=== PATIENT | female | born 1965 | race Caucasian/White ===

== ENCOUNTER 2017-02-27 01:44 | Emergency (ER) | payer MEDICARE, MEDICAID ==
[~2017-02-27] VITALS: Ht 172.7 cm; Wt 59.0 kg
[2017-02-27 02:20] LABS: *BILIRUBIN,URIN NEGATIVE (NEGATIVE); *BLOOD, URINE NEGATIVE (NEGATIVE); *CLARITY,URINE CLEAR (CLEAR); *COLOR,URINE YELLOW (YELLOW); *KETONES,URINE NEGATIVE (NEGATIVE); *PROTEIN,URINE NEGATIVE (NEGATIVE); *UROBILINOGEN,URINE 0.2 E.U./dl (NORMAL); LEUKOCYTE ESTERASE ,URINE NEGATIVE (NEGATIVE); NITRITE, URINE NEGATIVE (NEGATIVE); UGLUCOSE NEGATIVE (NEGATIVE)
[2017-02-27 02:22] LABS: *URINE HCG, QUAL NEGATIVE (NEGATIVE); BACTERIA,URINE FEW /HPF (NONE SEEN); RBC,URINE 0-3 /HPF (0-3); SQUAMOUS EPITHELIAL CELL,UR FEW /HPF (NONE SEEN); WBC,URINE 0-3 /HPF (0-3)
[2017-02-27 02:36] LABS: CARBON DIOXIDE 30 mmol/L (21-32); CHLORIDE 104 mmol/L (98-107); CREATININE 0.7 mg/dL (0.6-1.3); GLUCOSE 79 mg/dL (74-106); POTASSIUM 3.6 mmol/L (3.5-5.1); UREA NITROGEN, BLOOD 15 mg/dL (7-18)
[2017-02-27 02:38] LABS: *AMPHETAMINE, URINE NEGATIVE (NEGATIVE); *BARBITURATE, URINE NEGATIVE (NEGATIVE); *CANNABINOID, URINE NEGATIVE (NEGATIVE); *COCCAINE, URINE NEGATIVE (NEGATIVE); *OPIATE, URINE NEGATIVE (NEGATIVE); *PHENCYCLIDINE SCREEN,URINE NEGATIVE (NEGATIVE)
[2017-02-27 02:38] LABS: BASOPHILS % (AUTO) 0.6 % (0.0-2.0); EOSINOPHILS # (AUTO) 0.1 K/uL (0.0-0.7); HEMATOCRIT 34.8 % (37-47); HEMOGLOBIN 12.1 G/DL (12.0-16.0); LYMPHOCYTES # (AUTO) 1.7 K/UL (0.8-4.8); LYMPHOCYTES % (AUTO) 26.9 % (20.5-51.5); MEAN CORPUSCULAR HEMOGLOBIN 32.4 UUG (27.0-31.0); MEAN CORPUSCULAR HGB CONC 35 g/dL (32.0-37.0); MEAN CORPUSCULAR VOLUME 93.2 FL (81.0-99.0); MONOCYTES # (AUTO) 0.5 K/UL (0.1-1.30); MONOCYTES % (AUTO) 7.9 % (0.0-11.0); NEUTROPHILS % (AUTO) 62.6 % (38.5-71.5); PLATELET COUNT (AUTO) 240 K/UL (150-450); RED BLOOD CELL COUNT(AUTO) 3.74 MIL/UL (4.2-5.4); WHITE BLOOD COUNT (AUTO) 6.3 K/UL (4.0-11.2)
[2017-02-27 02:42] LABS: ALANINE AMINOTRANSFERASE 20 U/L (14-59); ALKALINE PHOSPHATASE 51 U/L (50-136); ASPARTATE AMINOTRANSFERASE 16 U/L (15-37); BILIRUBIN,DIRECT 0.1 mg/dL (0.0-0.2); BILIRUBIN,TOTAL 0.5 mg/dL (0.2-1.0); TOTAL PROTEIN, SERUM 7.2 g/dL (6.4-8.2)
[2017-02-27 02:43] LABS: ACETAMINOPHEN < 2.0 ug/mL (10-30)
[2017-02-27 02:44] LABS: ETHANOL < 3 MG/DL (0-0)
--- NOTE | 2017-02-27 03:15 | NUR ---
Patient is resting comfortably in bed with eyes closed
--- NOTE | 2017-02-27 04:40 | NUR ---
Patient is resting comfortably in bed with eyes closed
--- NOTE | 2017-02-27 05:13 | NUR ---
Call placed to Miguel Waldron for PET evaluation, ETA 60 min.
--- NOTE | 2017-02-27 06:33 | NUR ---
Miguel Waldron at bedside for PET evaluation.
--- NOTE | 2017-02-27 07:04 | NUR ---
Patient given written and verbal discharge instructions. Patient verbalizes understanding of instructions. Patient is ambulatory with steady gait. Refuses offer of longterm placement. Patient given list of available shelters in surrounding area.
== END 2017-02-27 07:05 | disposition home or self-care (01) ==
LOC: ER 01:46
DX: F32.9 Major depressive disorder, single episode, unspecified (principal); F41.9 Anxiety disorder, unspecified; F25.9 Schizoaffective disorder, unspecified; F10.20 Alcohol dependence, uncomplicated; F19.10 Other psychoactive substance abuse, uncomplicated; Z59.0 Homelessness
CPT/HCPCS: 36415; 71010; 80048; 80076; 80307; 81001; 84703; 85025; 93005; 99285; A4663; G0480 ×2; G0481

== ENCOUNTER 2017-03-04 18:17 | Emergency (ER) | payer MEDICARE, MEDICAID ==
[~2017-03-04] VITALS: Ht 172.7 cm; Wt 59.0 kg
--- NOTE | 2017-03-04 18:49 | NUR ---
PT DENIES TAKING ANY MEDICATIONS AT THIS TIME.
[2017-03-04 19:42] LABS: BASOPHILS % (AUTO) 0.8 % (0.0-2.0); EOSINOPHILS # (AUTO) 0.1 K/uL (0.0-0.7); EOSINOPHILS % (AUTO) 2.1 % (0.0-7.0); HEMATOCRIT 35.4 % (37-47); HEMOGLOBIN 12.3 G/DL (12.0-16.0); LYMPHOCYTES # (AUTO) 1.6 K/UL (0.8-4.8); LYMPHOCYTES % (AUTO) 27.7 % (20.5-51.5); MEAN CORPUSCULAR HEMOGLOBIN 32.2 UUG (27.0-31.0); MEAN CORPUSCULAR HGB CONC 35 g/dL (32.0-37.0); MEAN CORPUSCULAR VOLUME 92.5 FL (81.0-99.0); MONOCYTES # (AUTO) 0.3 K/UL (0.1-1.30); MONOCYTES % (AUTO) 5.8 % (0.0-11.0); NEUTROPHILS # (AUTO) 3.7 K/UL (1.8-8.9); NEUTROPHILS % (AUTO) 63.6 % (38.5-71.5); PLATELET COUNT (AUTO) 288 K/UL (150-450); RED BLOOD CELL COUNT(AUTO) 3.83 MIL/UL (4.2-5.4); WHITE BLOOD COUNT (AUTO) 5.7 K/UL (4.0-11.2)
[2017-03-04 19:50] LABS: ETHANOL < 3 MG/DL (0-0)
[2017-03-04 19:52] LABS: ALANINE AMINOTRANSFERASE 25 U/L (14-59); ALKALINE PHOSPHATASE 59 U/L (50-136); ASPARTATE AMINOTRANSFERASE 25 U/L (15-37); BILIRUBIN,DIRECT 0.3 mg/dL (0.0-0.2); BILIRUBIN,TOTAL 1.1 mg/dL (0.2-1.0); CARBON DIOXIDE 27 mmol/L (21-32); CHLORIDE 101 mmol/L (98-107); CREATININE 0.8 mg/dL (0.6-1.3); GLUCOSE 116 mg/dL (74-106); POTASSIUM 3.8 mmol/L (3.5-5.1); TOTAL PROTEIN, SERUM 7.3 g/dL (6.4-8.2); UREA NITROGEN, BLOOD 13 mg/dL (7-18)
[2017-03-04 19:54] LABS: ACETAMINOPHEN < 2.0 ug/mL (10-30)
[2017-03-04 20:01] LABS: *BLOOD, URINE 3+ (NEGATIVE); *CLARITY,URINE SLIGHTLY CLOUDY (CLEAR); *COLOR,URINE RED (YELLOW); *KETONES,URINE 1+ (NEGATIVE); LEUKOCYTE ESTERASE ,URINE 1+ (NEGATIVE); NITRITE, URINE POSITIVE (NEGATIVE); PH,URINE 5.5 (5.0-8.0); UGLUCOSE NEGATIVE (NEGATIVE)
[2017-03-04 20:02] LABS: *PROTEIN,URINE 3+ (NEGATIVE); *URINE HCG, QUAL NEGATIVE (NEGATIVE)
[2017-03-04 20:03] LABS: *BILIRUBIN,URIN 2+ (NEGATIVE)
--- NOTE | 2017-03-04 20:06 | NUR ---
Call placed to Miguel Waldron for PET evaluation. ETA 90 min.
[2017-03-04 20:09] LABS: RBC,URINE TNTC /HPF (0-3); SQUAMOUS EPITHELIAL CELL,UR FEW /HPF (NONE SEEN)
[2017-03-04 20:10] LABS: BACTERIA,URINE FEW /HPF (NONE SEEN)
[2017-03-04 20:15] LABS: *AMPHETAMINE, URINE POSITIVE (NEGATIVE); *BARBITURATE, URINE NEGATIVE (NEGATIVE); *CANNABINOID, URINE NEGATIVE (NEGATIVE); *COCCAINE, URINE NEGATIVE (NEGATIVE); *OPIATE, URINE NEGATIVE (NEGATIVE); *PHENCYCLIDINE SCREEN,URINE NEGATIVE (NEGATIVE)
--- NOTE | 2017-03-04 23:36 | NUR ---
Patient is resting comfortably in bed with eyes closed
--- NOTE | 2017-03-05 00:15 | NUR ---
Patient is resting comfortably in bed with eyes closed
--- NOTE | 2017-03-05 02:00 | NUR ---
Patient is resting comfortably in bed with eyes closed
--- NOTE | 2017-03-05 03:37 | NUR ---
Note danii in ED - 03/05/17 at 0351 by ROBEL Patient awake and agitated. Pacing in room, tangential thoughts, crying, and re-washing hands multiple times.
--- NOTE | 2017-03-05 03:51 | NUR ---
Patient awake and agitated. Pacing in room, tangential thoughts, crying, and re-washing hands multiple times. Patient is having anxiety related to her prior drug usage and life choices. Education provided, patient returned to room and layed in bed with eyes closed.
--- NOTE | 2017-03-05 04:35 | NUR ---
Patient is resting comfortably in bed with eyes closed
--- NOTE | 2017-03-05 06:02 | NUR ---
Patient discharged to home in stable conditon. Written and verbal after care instructions given. Patient verbalizes understanding of instructions.
== END 2017-03-05 06:06 | disposition home or self-care (01) ==
LOC: ER 18:17
DX: F19.10 Other psychoactive substance abuse, uncomplicated (principal); F10.20 Alcohol dependence, uncomplicated; F25.9 Schizoaffective disorder, unspecified; Z59.0 Homelessness
CPT/HCPCS: 36415; 80307; 84703; 85025; A4663; G0480; G0480-TC

== ENCOUNTER 2017-03-06 11:08 | Emergency (ER) | payer MEDICARE, MEDICAID ==
[~2017-03-06] VITALS: Ht 172.7 cm; Wt 59.0 kg
--- NOTE | 2017-03-06 11:46 | NUR ---
PT IS IN ROOM #2B. DR TALBERT EVALUATED THE PT . FUEL CELL BINDER CAME TO TALK TO THE PT.
--- NOTE | 2017-03-06 12:23 | NUR ---
MACY called to ED by NATHAN Keita who stated that ED physician was requesting a SW consult. MACY arrived to ED and met with NATHAN Keita and Dr. Mayers to consult. MACY then met with patient, who was lying down in the bed in her assigned ED room. Patient is a 51 year old female, with an extensive history of polysubstance use and mental illness. Patient with multiple ED visits (see previous charts). Patient reported that she came into the ED today due to suicidal thoughts. Patient reported that she was sober for nearly 4 years before relapsing on February 12, 2017 due to feeling very depressed. Patient stated that she last used meth and drank alcohol 2 days ago. Patient has been living in sober living for the past week, but wanted to go to another sober living. Patient also reported that she wanted to get help for her depression and suicidal thoughts. SW screened for plan and intent, and patient reported that when she leaves the hospital she plans on buying drugs from a dealer and overdosing. Patient was tearful throughout the interview with MACY. Patient was cooperative with SW, and asking for help. Patient did not report HI. No delusions or hallucinations present, nor did patient report any. MACY consulted with Dr. Mayers, who concurred with MACY contacting the crisis SW. MACY called the on-call crisis SW Miguel Waldron at [phone] and left him a voicemail, asking him to call MACY back. Dr. Mayers informed that voicemail message has been left for Miguel.
--- NOTE | 2017-03-06 12:41 | NUR ---
MACY received a call back from Miguel Waldron, crisis MACY. This SW consulted with Miguel regarding patient. Miguel stated he would come out to evaluate patient. MACY informed Miguel that patient stated that she would be go to an inpatient psychiatric unit voluntarily. Miguel stated that once he gets to the ED, he would work with this SW to find a place that has an available bed.
--- NOTE | 2017-03-06 12:49 | NUR ---
BEBE SIEGEL WAS CALLED TO EVALUATE PT. JULIETTE IS 1 HOUR.
--- NOTE | 2017-03-06 14:15 | NUR ---
Miguel Waldron in the ED, seeing patient.
--- NOTE | 2017-03-06 16:18 | NUR ---
PT WAS TRANSFERED TO [facility]. VIA S AMBULANCE VOLUNTARY ADMISSION TO PSYCH UNIT. DR RESENDIZ IS ADMITTING DOCTOR. REPORT WAS GIVEN TO AMBULANCE TEAM AND TO [facility] NATHAN MCCLAIN.
== END 2017-03-06 16:28 | disposition short-term general hospital (02) ==
LOC: ER 11:11
DX: F32.9 Major depressive disorder, single episode, unspecified (principal); F10.10 Alcohol abuse, uncomplicated; F25.9 Schizoaffective disorder, unspecified; F41.9 Anxiety disorder, unspecified; F19.20 Other psychoactive substance dependence, uncomplicated; Z59.0 Homelessness
CPT/HCPCS: 99285; A4663

== ENCOUNTER 2021-09-07 15:19 | Emergency (ER) | payer MEDICARE, OTHER ==
[~2021-09-07] VITALS: Ht 172.7 cm; Wt 59.0 kg
[2021-09-07] MEDS ORDERED: DEPAKOTE (15:30)
--- NOTE | 2021-09-07 15:32 | NUR ---
PT IS IN ROOM #1A. DR RESTREPO EVALUATED THE PT.
[2021-09-07] MEDS ORDERED: LORAZEPAM 0.5 MG TABLET PO ONE (16:00)
[2021-09-07] MEDS ORDERED: LORAZEPAM 1 MG TABLET ONE (16:23)
[2021-09-07 16:26] LABS: HEMATOCRIT 36.7 % (31.2-41.9); MEAN CORPUSCULAR HEMOGLOBIN 31.3 uug (24.7-32.8); MEAN CORPUSCULAR VOLUME 91.1 fL (75.5-95.3); PLATELET COUNT (AUTO) 267 K/uL (179-408)
[2021-09-07 16:29] LABS: CARBON DIOXIDE 28 mmol/L (21-32); CHLORIDE 103 mmol/L (98-107); CREATININE 0.7 mg/dL (0.6-1.3); GLUCOSE 118 mg/dL (74-106); POTASSIUM 3.9 mmol/L (3.5-5.1); UREA NITROGEN, BLOOD 12 mg/dL (7-18)
[2021-09-07 16:35] LABS: ACETAMINOPHEN < 2.0 ug/mL (10-30); ALANINE AMINOTRANSFERASE 16 U/L (14-59); ALKALINE PHOSPHATASE 79 U/L (50-136); ASPARTATE AMINOTRANSFERASE 16 U/L (15-37); BILIRUBIN,TOTAL 0.9 mg/dL (0.2-1.0); TOTAL PROTEIN, SERUM 7.6 g/dL (6.4-8.2)
[2021-09-07 16:36] LABS: ETHANOL < 3 MG/DL (0-0)
[2021-09-07 16:56] LABS: THYROID STIMULATING HORMONE 2.496 mIU/mL (0.358-3.740)
--- NOTE | 2021-09-07 17:03 | NUR ---
UTILITY OPERATOR YARN ANA TALKED TO THE PT . PT STATED THAT SHE VOLUNTARY WANTS TO BE ADMITTED TO PSYCHIATRIC UNIT AT [facility] [address].
--- NOTE | 2021-09-07 17:57 | NUR ---
PT IS MEDICALLY CLEARED BY DR RESTREPO. COPY OF PT's MEDICAL RECORDS WERE FAXED TO [facility] [address], [address] ACCORDING TO WORKRobert PEREZ REQUEST.
--- NOTE | 2021-09-07 19:10 | NUR ---
PT HAS REFUSED FOR HEAD CT, DR. RESTREPO AWARE.
--- NOTE | 2021-09-07 19:12 | NUR ---
RECEIVED REPORT FROM JOSE DANIEL. PT NOTED TO BE IN BED, NO SOB OR LABORED BREATHING, AFEBRILE. DENIES ANY PAIN/DISCOMFORT.
--- NOTE | 2021-09-07 19:28 | NUR ---
Julianna foy in EDM - 09/07/21 at 2002 by ANGE RECEIEVED CALL FROM ART FROM [facility] PT [facility] ACCEPTING PSYCH: DR. SANTORO REPORT #: [phone]
--- NOTE | 2021-09-07 19:28 | NUR ---
RECEIEVED CALL FROM ART FROM [facility] PT [facility]ED TO [facility] ACCEPTING PSYCH: DR. SANTORO REPORT #: [phone]
--- NOTE | 2021-09-07 20:04 | NUR ---
REPORT GIVEN TO [facility] VICENTE.
[2021-09-07] MEDS ORDERED: HALOPERIDOL LACTATE 5 MG/1 ML VIAL ONE (20:28)
[2021-09-07] MEDS ORDERED: HALOPERIDOL LACTATE 5 MG/1 ML VIAL IM ONE (20:30)
[2021-09-07] MEDS ORDERED: LORA-259 PO (23:19)
--- NOTE | 2021-09-08 02:05 | NUR ---
PT IN BED EYES CLOSED, RESTING.
--- NOTE | 2021-09-08 06:34 | NUR ---
PT AMBULATED TO RESTROOM, STEADY GAIT.
--- NOTE | 2021-09-08 08:12 | NUR ---
Patient is awake and alert. She ambulated to the bathroom with steady gait. Stated she is ready to leave. DC, Rx (including all Ativan precautions) given and explained to patient who state she understands all instructions.
== END 2021-09-08 08:14 | disposition home or self-care (01) ==
LOC: ER 15:21
DX: F31.9 Bipolar disorder, unspecified (principal); F20.9 Schizophrenia, unspecified; Z79.899 Other long term (current) drug therapy; Z20.822 Contact with and (suspected) exposure to COVID-19
CPT/HCPCS: 36415; 80053; 80299; 80320; 84443; 84484; 85025; 87426; 96372; 99285; J1630; 70030-TC; A4663; G0480

== ENCOUNTER 2021-09-25 17:10 | Emergency (ER) | payer MEDICARE, OTHER ==
[~2021-09-25] VITALS: Ht 172.7 cm; Wt 59.0 kg
[~2021-09-25 17:10] MED LIST: DEPAKOTE PO; LORA-259 PO
[2021-09-25] MEDS ORDERED: LORA2TAB95 PO (18:12)
[2021-09-25 18:20] LABS: HEMATOCRIT 33.4 % (31.2-41.9); MEAN CORPUSCULAR HEMOGLOBIN 31.6 uug (24.7-32.8); MEAN CORPUSCULAR VOLUME 90.5 fL (75.5-95.3); PLATELET COUNT (AUTO) 289 K/uL (179-408)
[2021-09-25 18:25] LABS: CARBON DIOXIDE 29 mmol/L (21-32); CHLORIDE 104 mmol/L (98-107); CREATININE 0.7 mg/dL (0.6-1.3); GLUCOSE 96 mg/dL (74-106); POTASSIUM 4.4 mmol/L (3.5-5.1); UREA NITROGEN, BLOOD 13 mg/dL (7-18)
[2021-09-25 18:27] LABS: *BILIRUBIN,URIN NEGATIVE (NEGATIVE); *COLOR,URINE YELLOW (YELLOW); *KETONES,URINE 1+ (NEGATIVE); *UROBILINOGEN,URINE 0.2 E.U./dl (NORMAL); LEUKOCYTE ESTERASE ,URINE 1+ (NEGATIVE); NITRITE, URINE NEGATIVE (NEGATIVE); PH,URINE 5.5 (5.0-8.0); UGLUCOSE NEGATIVE (NEGATIVE)
[2021-09-25 18:31] LABS: ALANINE AMINOTRANSFERASE 18 U/L (14-59); ALKALINE PHOSPHATASE 61 U/L (50-136); ASPARTATE AMINOTRANSFERASE 22 U/L (15-37); BILIRUBIN,DIRECT 0.1 mg/dL (0.0-0.2); BILIRUBIN,TOTAL 0.5 mg/dL (0.2-1.0)
[2021-09-25 18:32] LABS: ACETAMINOPHEN < 2.0 ug/mL (10-30); ETHANOL < 3 MG/DL (0-0)
[2021-09-25 18:33] LABS: *BLOOD, URINE TRACE (NEGATIVE)
[2021-09-25 18:36] LABS: *CLARITY,URINE HAZY (CLEAR); BACTERIA,URINE FEW /HPF (NONE SEEN); SQUAMOUS EPITHELIAL CELL,UR MODERATE /HPF (NONE SEEN); WBC,URINE 20-50 /HPF (0-3)
[2021-09-25 18:37] LABS: *AMPHETAMINE, URINE POSITIVE (NEGATIVE); *CANNABINOID, URINE NEGATIVE (NEGATIVE); *COCCAINE, URINE NEGATIVE (NEGATIVE); *OPIATE, URINE NEGATIVE (NEGATIVE); *PHENCYCLIDINE SCREEN,URINE NEGATIVE (NEGATIVE)
--- NOTE | 2021-09-25 18:47 | NUR ---
Patient is now in room 3 because this patient is COVID+ per lab staff
--- NOTE | 2021-09-25 18:48 | NUR ---
Julianna foy in [facility] - 09/25/21 at 1919 by LINDA tita medical clearance, SBAR to 7pm nurse Wilner singh.
--- NOTE | 2021-09-25 19:01 | NUR ---
SBAR to NATHAN Darby and orientee NATHAN Vera, pending medical clearance and psych evaluation@this time. 1:1 sitter observation maintained with female security installation sales technician.
--- NOTE | 2021-09-25 19:01 | NUR ---
Julianna foy in [facility] - 09/25/21 at 1919 by LINDA BSAR to NATHAN Darby and NATHAN Joseph
[2021-09-25] MEDS ORDERED: CEPH500T PO (20:17)
--- NOTE | 2021-09-25 20:47 | NUR ---
Pinky from PET TEAM here to eval patient.
--- NOTE | 2021-09-25 21:30 | NUR ---
Per Amna from the PET TEAM, patient does not meet 5150 criteria and will go voluntary to [facility] [place] [facility].
--- NOTE | 2021-09-26 01:00 | NUR ---
Patient sleeping with no distress noted.
--- NOTE | 2021-09-26 06:10 | NUR ---
Pam of [facility] intake called back who states patient is accepted and will call back with transfer info and accepting MD.
--- NOTE | 2021-09-26 07:13 | NUR ---
Building Services Technician assumes care: patient is resting with eyes close, respiration:easy, nonlabored and even. The patient is for voluntary psych admission to [facility] today, pending accepting nurse, doctor and available COVID room at this time.
--- NOTE | 2021-09-26 08:13 | NUR ---
Water Purification Chemist Nicky Obrien called and said to call [facility] for nursing report by 11am and ambulance can pickle processor this patient by 11am as well. Val will give the phone number for nursing report.
--- NOTE | 2021-09-26 09:02 | NUR ---
Val, our ER professor of social work gave the telephone number for nursing report which is . Per Val, the nursing staff in [facility] unit 6 will give the name of the accepting doctor once nursing report is given at 11am. [place] Professional dispatcher tugboat Sav accepted the call and a S ambulance will pick this patient up at 11am.
--- NOTE | 2021-09-26 10:07 | NUR ---
Patient is eating hot breakfast with good appetite, NAD, calm, cooperative when awake.
--- NOTE | 2021-09-26 11:08 | NUR ---
Patient Tranfers to outside Facility:[facility] Physician:Opal Location:room 436-B Nurse: Kenna todd nursing SBAR
== END 2021-09-26 11:08 | disposition short-term general hospital (02) ==
LOC: ER 17:16
DX: U07.1 COVID-19 (principal); F32.9 Major depressive disorder, single episode, unspecified; F15.10 Other stimulant abuse, uncomplicated; R82.81 Pyuria; Z79.899 Other long term (current) drug therapy
CPT/HCPCS: 36415; 71045; 85025; 87077; 87086; A4663; G0480

== ENCOUNTER 2021-11-03 23:22 | Emergency (ER) | payer MEDICARE, OTHER ==
[~2021-11-03] VITALS: Ht 172.7 cm; Wt 63.5 kg
[~2021-11-03 23:22] MED LIST changes: +CEPH500T PO; -LORA-259 PO; +LORA2TAB95 PO
[2021-11-03] MEDS ORDERED: THIAMINE HCL 100 MG TABLET PO ONE (23:45)
--- NOTE | 2021-11-03 23:45 | NUR ---
Pt provided urine sample, sent to lab.
[2021-11-04] MEDS ORDERED: THIAMINE HCL 100 MG TABLET ONE (00:12)
[2021-11-04 00:15] LABS: HEMATOCRIT 35.1 % (31.2-41.9); MEAN CORPUSCULAR HEMOGLOBIN 31.8 uug (24.7-32.8); MEAN CORPUSCULAR VOLUME 92.3 fL (75.5-95.3); PLATELET COUNT (AUTO) 246 K/uL (179-408)
[2021-11-04 00:21] LABS: CARBON DIOXIDE 28 mmol/L (21-32); CHLORIDE 105 mmol/L (98-107); CREATININE 0.6 mg/dL (0.6-1.3); GLUCOSE 98 mg/dL (74-106); POTASSIUM 3.7 mmol/L (3.5-5.1); UREA NITROGEN, BLOOD 17 mg/dL (7-18)
[2021-11-04 00:27] LABS: ALANINE AMINOTRANSFERASE 13 U/L (14-59); ALKALINE PHOSPHATASE 62 U/L (50-136); ASPARTATE AMINOTRANSFERASE 14 U/L (15-37); BILIRUBIN,DIRECT 0.2 mg/dL (0.0-0.2); BILIRUBIN,TOTAL 0.8 mg/dL (0.2-1.0); TOTAL PROTEIN, SERUM 7.2 g/dL (6.4-8.2)
[2021-11-04 00:28] LABS: ACETAMINOPHEN < 2.0 ug/mL (10-30)
[2021-11-04 00:43] LABS: ETHANOL < 3 MG/DL (0-0)
[2021-11-04 01:06] LABS: *AMPHETAMINE, URINE NEGATIVE (NEGATIVE); *CANNABINOID, URINE POSITIVE (NEGATIVE); *COCCAINE, URINE NEGATIVE (NEGATIVE); *OPIATE, URINE NEGATIVE (NEGATIVE); *PHENCYCLIDINE SCREEN,URINE NEGATIVE (NEGATIVE)
[2021-11-04 01:49] LABS: *BILIRUBIN,URIN NEGATIVE (NEGATIVE); *BLOOD, URINE NEGATIVE (NEGATIVE); *CLARITY,URINE CLEAR (CLEAR); *COLOR,URINE YELLOW (YELLOW); *KETONES,URINE TRACE (NEGATIVE); *UROBILINOGEN,URINE 0.2 E.U./dl (NORMAL); LEUKOCYTE ESTERASE ,URINE 1+ (NEGATIVE); NITRITE, URINE NEGATIVE (NEGATIVE); PH,URINE 5.5 (5.0-8.0); UGLUCOSE NEGATIVE (NEGATIVE)
[2021-11-04 01:54] LABS: BACTERIA,URINE FEW /HPF (NONE SEEN); RBC,URINE 0-3 /HPF (0-3); SQUAMOUS EPITHELIAL CELL,UR FEW /HPF (NONE SEEN)
--- NOTE | 2021-11-04 01:59 | NUR ---
Pt medically cleared by Dr. Durand.
--- NOTE | 2021-11-04 02:08 | NUR ---
Called [facility], spoke with Danna, pt is willing to go voluntarily, faxed patient's information to .
--- NOTE | 2021-11-04 04:32 | NUR ---
Received call back from [facility], spoke with Danna with transfer information, patient accepted by Dr. Gutierrez, unit 1, number to report .
--- NOTE | 2021-11-04 06:00 | NUR ---
Report given to Hermelindo EVANS [facility].
== END 2021-11-04 06:11 ==
LOC: ER 23:24
DX: R45.851 Suicidal ideations (principal); F15.10 Other stimulant abuse, uncomplicated; F10.20 Alcohol dependence, uncomplicated; Y90.0 Blood alcohol level of less than 20 mg/100 ml; Z59.00 Homelessness unspecified; F31.9 Bipolar disorder, unspecified; Z20.822 Contact with and (suspected) exposure to COVID-19
CPT/HCPCS: 36415; 83735; 85025; 87086; G0480

== ENCOUNTER 2021-11-18 02:05 | Inpatient (IN) | payer MEDICARE, OTHER ==
[~2021-11-18] VITALS: Ht 172.7 cm; Wt 61.7 kg
--- NOTE | 2021-11-18 02:23 | NUR ---
yahaira roman ra from [facility] pt is on a 5150 gravely disabled will not take meds or eat. pt provided urine sample. pt will be transferred to mental health.
--- NOTE | 2021-11-18 02:26 | NUR ---
Dr. Durand at bedside for MSE.
[2021-11-18 02:30] LABS: *BILIRUBIN,URIN NEGATIVE (NEGATIVE); *BLOOD, URINE NEGATIVE (NEGATIVE); *COLOR,URINE YELLOW (YELLOW); *KETONES,URINE TRACE (NEGATIVE); *UROBILINOGEN,URINE 0.2 E.U./dl (NORMAL); LEUKOCYTE ESTERASE ,URINE 1+ (NEGATIVE); NITRITE, URINE NEGATIVE (NEGATIVE); PH,URINE 5.5 (5.0-8.0); UGLUCOSE NEGATIVE (NEGATIVE)
[2021-11-18 02:40] LABS: *CLARITY,URINE HAZY (CLEAR)
[2021-11-18] MEDS ORDERED: diphenhydrAMINE 50 MG/1 ML VIAL ONE (02:42)
[2021-11-18 02:43] LABS: HEMATOCRIT 37.4 % (31.2-41.9); MEAN CORPUSCULAR HEMOGLOBIN 31.2 uug (24.7-32.8); MEAN CORPUSCULAR VOLUME 90.2 fL (75.5-95.3); PLATELET COUNT (AUTO) 192 K/uL (179-408)
[2021-11-18] MEDS ORDERED: ZIPRASIDONE MESYLATE 20 MG VIAL IM ONE ×2 (02:43→02:45)
[2021-11-18] MEDS ORDERED: LORAZEPAM 2 MG/1 ML VIAL ONE (02:44)
[2021-11-18 02:45] LABS: *AMPHETAMINE, URINE NEGATIVE (NEGATIVE); *CANNABINOID, URINE NEGATIVE (NEGATIVE); *COCCAINE, URINE NEGATIVE (NEGATIVE); *OPIATE, URINE NEGATIVE (NEGATIVE); *PHENCYCLIDINE SCREEN,URINE NEGATIVE (NEGATIVE)
[2021-11-18] MEDS ORDERED: LORAZEPAM 2 MG/1 ML VIAL IM ONE (02:45)
[2021-11-18] MEDS ORDERED: diphenhydrAMINE 50 MG/1 ML VIAL IM ONE (02:45)
[2021-11-18 02:54] LABS: CARBON DIOXIDE 27 mmol/L (21-32); CHLORIDE 106 mmol/L (98-107); CREATININE 0.6 mg/dL (0.6-1.3); GLUCOSE 108 mg/dL (74-106); POTASSIUM 3.8 mmol/L (3.5-5.1); UREA NITROGEN, BLOOD 14 mg/dL (7-18)
[2021-11-18 02:54] LABS: BACTERIA,URINE FEW /HPF (NONE SEEN); RBC,URINE NONE SEEN /HPF (0-3); SQUAMOUS EPITHELIAL CELL,UR FEW /HPF (NONE SEEN)
[2021-11-18 02:55] LABS: ETHANOL < 3 MG/DL (0-0)
--- NOTE | 2021-11-18 02:55 | NUR ---
injection given, pt is restless, refusing ekg getting oob cursing at staff.
--- NOTE | 2021-11-18 03:01 | NUR ---
called to mental health spoke with Jesus, he is aware of this pt to come to mental health. pt has a history of bipolar disorder, takes trazodone and depakote.
[2021-11-18 03:06] LABS: ALANINE AMINOTRANSFERASE 24 U/L (14-59); ALKALINE PHOSPHATASE 77 U/L (50-136); ASPARTATE AMINOTRANSFERASE 15 U/L (15-37); BILIRUBIN,DIRECT 0.2 mg/dL (0.0-0.2); BILIRUBIN,TOTAL 0.6 mg/dL (0.2-1.0)
[2021-11-18 03:08] LABS: ACETAMINOPHEN < 2.0 ug/mL (10-30)
[2021-11-18] MEDS ORDERED: MAGNESIUM HYDROXIDE 30 ML LIQUID UDC PO PRN (03:15)
[2021-11-18] MEDS ORDERED: MAG HYDROX/AL HYDROX/SIMETH 30 ML LIQUID UDC PO PRN (03:15)
[2021-11-18] MEDS ORDERED: BLOOD SUGAR DIAGNOSTIC 1 EACH STRIP VI ONE (03:15)
[2021-11-18] MEDS ORDERED: CLONAZEPAM 0.5 MG TABLET PO PRN (03:15)
[2021-11-18] MEDS ORDERED: ACETAMINOPHEN 325 MG TABLET PO PRN (03:15)
--- NOTE | 2021-11-18 03:34 | NUR ---
report given to Jesus in mental health pt to go to room 140.
[2021-11-18] MEDS ORDERED: TRAZ-182 PO (03:36)
--- NOTE | 2021-11-18 04:18 | NUR ---
pt taken to mental health unit, Jesus QUINTERO accepted the pt. pt with all belongings.
[2021-11-18 04:35] VITALS: BP 93/52
--- NOTE | 2021-11-18 07:00 | NUR ---
Received to care from the ER, on a 72 hour hold for gravely disabled, a transfer from [facility], in [place]. According to the hold, she was refusing food and medications, and paranoid of staff, for the past 11 days. Upon arrival, she was groggy after being medicated in the ER, was confused, and thought she was in "[facility]". She wa suncoperative with interview, and went promptly to sleep. She was advised of her hold, and patients rights booklet was given to her, and placed at her bedside.
[2021-11-18 07:30] VITALS: BP 98/57
[2021-11-18] MEDS: DIVALPROEX 250 MG TABLET.DR PO SCH ×3 (10:19→20:47)
[2021-11-18 16:00] VITALS: BP 109/76
[2021-11-18] MEDS: CLONAZEPAM 0.5 MG TABLET PO PRN ×2 (16:58→22:54)
[2021-11-18 20:00] VITALS: BP 108/80
--- NOTE | 2021-11-18 20:00 | NUR ---
PATIENT ALERT, AWARE, AMBULATE IN HALLWAYS, ASKED FOR SNACKS, COFFEE, JUICE, GIVEN REQUESTED, PATIENT IS CALM COOPERATIVE WITH CARE AND MEDICATIONS, CONT TO MONITOR.
[2021-11-18] MEDS: OLANZAPINE 5 MG TABLET PO SCH (20:47)
[2021-11-18] MEDS ORDERED: ZOLPIDEM 5 MG TABLET PO ONE (21:00)
--- NOTE | 2021-11-18 23:40 | NUR ---
PATIENT STILL AWAKE, AMBULATE TO HALLWAYS ASKING FOR FOOD MULTIPLE TIMES, DESPITE GIVEN SANDWICHES ALREADY, JUICE, HOT TEA, PATIENT HAS LITTLE ANXIETY, WALKS IN AND OUT OF HER ROOM, REORIENT PATIENT THAT SHE NEEDS TO STAY IN BED, CAUSE SHE TOOK SLEEPING MEDS ALREADY, AND RISK FOR FALL, PATIENT COOPERATIVE, GOES BACK TO ROOM AND TRIES TO SLEEP. CONT TO MONITOR.
[2021-11-19 07:56] LABS: PHOSPHOROUS 3.8 mg/dL (2.5-4.9)
[2021-11-19 08:28] LABS: THYROID STIMULATING HORMONE 0.942 mIU/mL (0.358-3.740)
[2021-11-19] MEDS: DIVALPROEX 250 MG TABLET.DR PO SCH ×2 (08:58→20:13)
[2021-11-19 16:05] VITALS: BP 106/76
[2021-11-19 20:00] VITALS: BP 106/75
[2021-11-19] MEDS: OLANZAPINE 5 MG TABLET PO SCH (20:14)
--- NOTE | 2021-11-20 06:16 | NUR ---
Patient was noted with labile mood, paranoid with care. Refused Zyprexa, stated "she does not need it and people are being racist to her." She walks the hallway in and out of the room demanding to give her food even if she already got some. Shouted when she was not able to get tea per her request, explained she already had one and dietary is closed to request for more. Demanded soy milk or non fat milk because that's the only drink she wants and stated she wants to make sure she will get food that is non fattening. Maintained safety measures at all times. Frequent checks done. Denies SI. No acute distress noted. She slept seven hours. will endorse to the next shift for continuity of care.
[2021-11-20 07:42] VITALS: BP 117/74
[2021-11-20] MEDS: CYANOCOBALAMIN 1,000 MCG TABLET PO SCH ×2 (08:35→09:00)
[2021-11-20] MEDS: DIVALPROEX 250 MG TABLET.DR PO SCH ×3 (08:35→21:00)
[2021-11-20 17:10] VITALS: BP 128/80
--- NOTE | 2021-11-20 17:58 | NUR ---
patient refused all am medication , made aware.will submit rinse petition per psychiatrist today.patient is continue with labile mood and poor insight and judgement .will continue close monitoring.
[2021-11-20 20:02] VITALS: BP 118/76
[2021-11-20] MEDS: NITROFURANTOIN/NITROFURAN MAC 100 MG CAPSULE PO SCH (21:00)
[2021-11-20] MEDS: OLANZAPINE 5 MG TABLET PO SCH (21:00)
[2021-11-20] MEDS: TEMAZEPAM 7.5 MG CAPSULE PO PRN (22:02)
--- NOTE | 2021-11-20 23:10 | NUR ---
PATIENT CONTINUES TO REFUSE MEDICATION, EXPLAINED THE IMPORTANCE OF TAKING MEDICATION AND CONTINUES TO REFUSE. . PATIENT IS PLEASANT UPON APPROACH, IN NO APPARENT DISTRESS. PATIENT DENIES PAIN AT THIS TIME. PATIENT DENIES SI. BED IN LOWEST POSITION, BED LOCKED, AND BED ALARM ON WHILE IN BED. PATIENT REQUESTED SLEEP AID, RENDERED ORDERED.
[2021-11-21 07:30] VITALS: BP 90/57
[2021-11-21] MEDS: NITROFURANTOIN/NITROFURAN MAC 100 MG CAPSULE PO SCH ×2 (08:45→21:00)
[2021-11-21] MEDS: MULTIVITAMINS,THERAPEUTIC TABLET PO SCH (08:45)
[2021-11-21] MEDS: CYANOCOBALAMIN 1,000 MCG TABLET PO SCH (08:45)
[2021-11-21] MEDS: DIVALPROEX 250 MG TABLET.DR PO SCH ×2 (08:45→21:00)
[2021-11-21] MEDS: FAMOTIDINE 20 MG TABLET PO SCH (08:45)
--- NOTE | 2021-11-21 08:46 | NUR ---
GPS: PT RECEIVED ON BED. DENIES ANY PAIN OR DISCOMFORT. PT ISOLATIVE IN THE ROOM. REFUSED MEDICATION. EXPLAINED RISK AND BENEFITS. NO AGITATION NOTED. WILL MONITOR FOR SAFETY. PER BENJAMIN VASQUEZ, DAM TENDER ASSISTANT, PT WILL BE DISCHARGE TOMORROW.
--- NOTE | 2021-11-21 11:25 | NUR ---
SW Admit Source: Pt on a hold for GD. Pt placed on a hold a transfer from [facility], in [place]. According to the hold, she was refusing food and medications, and paranoid of staff, for the past 11 days. Pt is homeless and will need a SNF.
--- NOTE | 2021-11-21 11:25 | NUR ---
MACY Initial Discharge Plan: Pt. is a 56-year-old female who was admitted to [facility] on a hold as a gravely disabled adult. Pt. is currently homeless. Per pt.s mother Jania ([phone]) pt. Came from a board and care. Per pt.s mother Jania ([phone]) pt. has nowhere to go upon discharge. Pt. stated she did not want to go to a halfway facility. Pt. stated she wanted to go to a sober living facility through [facility]. MACY will coordinate with MD and the pt. to coordinate safe and proper discharge.
--- NOTE | 2021-11-21 15:27 | NUR ---
GPS: PT WENT TO NURSES STATION SAYING THAT SHE WAS MISSING A MIRROR ON HER STUFF AND SHE DOES NOT WANT IT ANYMORE. PT IS PARANOID AND ANXIOUS. OFFERED MEDICATION TO ANXIETY BUT PT REFUSED AND STATED "I DON'T WANT ANYTHING FROM [facility]".
--- NOTE | 2021-11-21 18:22 | NUR ---
GPS: PT PACING THE HALLWAY, SPEAKS WITH OTHER PT. NOTED HAVING LOOSE OF ASSOCIATION, JUMPING FROM ONE TOPIC TO ANOTHER. PARANOIA AND SUDDEN INAPPROPRIATE LAUGHING WITH NO REASON NOTED. REFUSES MEDICATION.
[2021-11-21] MEDS: OLANZAPINE 5 MG TABLET PO SCH (21:00)
--- NOTE | 2021-11-21 22:19 | NUR ---
PATIENT CONTINUES TO REFUSE MEDICATION, EXPLAINED THE IMPORTANCE OF TAKING MEDICATION AND CONTINUES TO REFUSE. . PATIENT IN NO APPARENT DISTRESS. PATIENT RESPONDING TO INTERNAL STIMULI. PATIENT DENIES PAIN AT THIS TIME. PATIENT DENIES SI. BED IN LOWEST POSITION, BED LOCKED, AND BED ALARM ON WHILE IN BED. PATIENT ABLE TO MAKE NEEDS KNOWN.
[2021-11-22 07:30] VITALS: BP 139/73
[2021-11-22] MEDS: DIVALPROEX 250 MG TABLET.DR PO SCH (08:41)
[2021-11-22] MEDS: NITROFURANTOIN/NITROFURAN MAC 100 MG CAPSULE PO SCH ×2 (08:43→20:55)
[2021-11-22] MEDS: MULTIVITAMINS,THERAPEUTIC TABLET PO SCH (08:43)
[2021-11-22] MEDS: CYANOCOBALAMIN 1,000 MCG TABLET PO SCH (08:43)
[2021-11-22] MEDS: FAMOTIDINE 20 MG TABLET PO SCH (08:43)
--- NOTE | 2021-11-22 16:36 | NUR ---
patient is alert and oriented x3, continue refused all medication she state that 'i don't want to take any medication from here", psychiatrist made aware. patient with poor insight and poor judgement .pacing in the unit no interaction with other peers,encouraged to attendance in group activity ,will continue to monitoring .
--- NOTE | 2021-11-22 20:00 | NUR ---
Refused evening vital vital signs.
[2021-11-22 20:18] VITALS: BP 133/86
[2021-11-22] MEDS: DIVALPROEX 500 MG TABLET.DR PO SCH (20:55)
[2021-11-22] MEDS: ESCITALOPRAM OXALATE 10 MG TABLET PO SCH (20:55)
[2021-11-22] MEDS: OLANZAPINE 5 MG TABLET PO SCH (20:55)
--- NOTE | 2021-11-23 00:42 | NUR ---
Received patient in her room. The patient refused to have VS taken and stating that there is a " Chemicals are going up my nose from the machine. " This patient was angry, condescending and refused to take any medications including the antibiotic for her UTI. This staff writer tried to explain about medications and educate this patient , but the patient is paranoid and unable to engage in any meaningful conversation. She has poor impulse control and labile moods. Safety Stratiges are in place at this time.
[2021-11-23] MEDS: DIVALPROEX 500 MG TABLET.DR PO SCH ×3 (01:13→21:00)
--- NOTE | 2021-11-23 03:21 | NUR ---
During the night , this patient came to the nurses station and asked for the Depakote which she had earlier refused. The medication was provided. The antibiotic was offered at that time, and again the patient declined.
[2021-11-23 08:33] VITALS: BP 112/77
[2021-11-23] MEDS: FAMOTIDINE 20 MG TABLET PO SCH ×2 (09:00→09:08)
[2021-11-23] MEDS: NITROFURANTOIN/NITROFURAN MAC 100 MG CAPSULE PO SCH ×3 (09:00→21:00)
[2021-11-23] MEDS: CYANOCOBALAMIN 1,000 MCG TABLET PO SCH ×2 (09:00→09:09)
[2021-11-23] MEDS: MULTIVITAMINS,THERAPEUTIC TABLET PO SCH ×2 (09:00→09:11)
[2021-11-23 17:36] VITALS: BP 127/77
[2021-11-23] MEDS: ESCITALOPRAM OXALATE 10 MG TABLET PO SCH (21:00)
[2021-11-23] MEDS: OLANZAPINE 5 MG TABLET PO SCH (21:00)
[2021-11-23 21:40] VITALS: BP 127/29
--- NOTE | 2021-11-24 06:08 | NUR ---
Patient continues to be paranoid and refused all her medications during this shift.
[2021-11-24 07:30] VITALS: BP 100/70
[2021-11-24] MEDS: FAMOTIDINE 20 MG TABLET PO SCH (08:38)
[2021-11-24] MEDS: DIVALPROEX 500 MG TABLET.DR PO SCH ×2 (08:38→20:14)
[2021-11-24] MEDS: MULTIVITAMINS,THERAPEUTIC TABLET PO SCH (08:38)
[2021-11-24] MEDS: CYANOCOBALAMIN 1,000 MCG TABLET PO SCH (08:38)
[2021-11-24] MEDS: NITROFURANTOIN/NITROFURAN MAC 100 MG CAPSULE PO SCH ×2 (08:38→20:14)
--- NOTE | 2021-11-24 08:39 | NUR ---
Gps/Soil Science Technical Officer- Patient continue to refused, routine am meds, reviewed with patient, claimed she'll take care of her meds./prescriptions when she leaves the hosp. informed and instructed patient the importance of starting taking her routine meds. as prescribed. . Able to drink juice, refused breakfast
--- NOTE | 2021-11-24 10:53 | NUR ---
Gps/Periodontist- Refused to be swabbed for covid antigen claimed she's not going to any facility. Sobia die out worker was made aware , informed, talked to patient . Dr Jarrod Baez was called by Sobia CAVAZOS, was informed of patient behavior , anxious
--- NOTE | 2021-11-24 11:08 | NUR ---
Gps/Senior Automation Engineer- Patient extremely anxious, agitated, wanting to leave right now, but not providing location where she's going . Dr Baez, talked to Dr Bernabe, discharge orders cancelled .
[2021-11-24] MEDS ORDERED: LORAZEPAM 2 MG/1 ML VIAL IV ONE (11:40)
[2021-11-24] MEDS ORDERED: LORAZEPAM 2 MG/1 ML VIAL IM ONE (12:00)
--- NOTE | 2021-11-24 12:00 | NUR ---
Gps/Director Payment- Received t/o from Dr Crain to admnister Ativan 2 mg IM one time duff
--- NOTE | 2021-11-24 13:48 | NUR ---
Gps/Knockdown Man- Patient's mother Jania , called wants to know if her daughter still in MHU, wants to talk to patient .
--- NOTE | 2021-11-24 14:58 | NUR ---
Gps/Business Operations Director- Patient in bed, asleep at this time.
--- NOTE | 2021-11-24 15:37 | NUR ---
COURT HEARING: Pt's probable cause hearing was upheld for gravely disabled adult.
[2021-11-24 15:42] VITALS: BP 110/77
[2021-11-24 20:15] VITALS: BP 114/83
[2021-11-24] MEDS: ESCITALOPRAM OXALATE 10 MG TABLET PO SCH (20:15)
[2021-11-24] MEDS: OLANZAPINE 5 MG TABLET PO SCH (20:15)
[2021-11-24] MEDS: TEMAZEPAM 7.5 MG CAPSULE PO PRN (22:19)
[2021-11-25] MEDS: CLONAZEPAM 0.5 MG TABLET PO PRN (03:10)
--- NOTE | 2021-11-25 06:23 | NUR ---
GPS: Remain calm and [id number] with meds and care. slept 5.45 hrs through the night. continue plan of care.
[2021-11-25 08:00] VITALS: BP 92/57
[2021-11-25] MEDS: FAMOTIDINE 20 MG TABLET PO SCH (09:02)
[2021-11-25] MEDS: NITROFURANTOIN/NITROFURAN MAC 100 MG CAPSULE PO SCH ×3 (09:02→20:51)
[2021-11-25] MEDS: MULTIVITAMINS,THERAPEUTIC TABLET PO SCH (09:02)
[2021-11-25] MEDS: DIVALPROEX 500 MG TABLET.DR PO SCH ×2 (09:02→20:46)
[2021-11-25] MEDS: CYANOCOBALAMIN 1,000 MCG TABLET PO SCH (09:02)
[2021-11-25] MEDS: ENSURE ENLIVE (VAN) 240 ML LIQUID PO SCH (10:00)
--- NOTE | 2021-11-25 11:58 | NUR ---
GPS: Nursing Notes: Destructive Behavior To Self: Patient is awake and responding to her name, resistant with nursing care at times, compliant with her Depakote, stated "This is all I need and works for me..", refusing her Zyprexa and Lexapro, stated "I don't need them.. I don't want be overmedicated..", "I am not depressed anymore..", poor impulse control, anxious affect, unable to formulate a viable plan for self care, denies SI/HI, continue to monitor for safety, continue with treatment plan.
[2021-11-25 16:07] VITALS: BP 106/83
[2021-11-25 20:00] VITALS: BP 118/76
[2021-11-25] MEDS: TEMAZEPAM 7.5 MG CAPSULE PO PRN ×2 (20:47→20:50)
[2021-11-25] MEDS: OLANZAPINE 5 MG TABLET PO SCH (20:49)
[2021-11-25] MEDS: ESCITALOPRAM OXALATE 10 MG TABLET PO SCH (20:49)
[2021-11-26] MEDS: TEMAZEPAM 7.5 MG CAPSULE PO PRN (01:06)
[2021-11-26 07:30] VITALS: BP 95/57
[2021-11-26] MEDS: CYANOCOBALAMIN 1,000 MCG TABLET PO SCH (09:00)
[2021-11-26] MEDS: NITROFURANTOIN/NITROFURAN MAC 100 MG CAPSULE PO SCH ×2 (09:00→20:51)
[2021-11-26] MEDS: DIVALPROEX 500 MG TABLET.DR PO SCH ×2 (09:00→20:50)
[2021-11-26] MEDS: MULTIVITAMINS,THERAPEUTIC TABLET PO SCH (09:00)
[2021-11-26] MEDS: FAMOTIDINE 20 MG TABLET PO SCH (09:00)
[2021-11-26] MEDS: ENSURE ENLIVE (VAN) 240 ML LIQUID PO SCH (09:31)
--- NOTE | 2021-11-26 12:38 | NUR ---
GPS: Nursing Notes: Destructive Behavior To Self: Patient is awake and responding to her name, gets easily anxious when redirected, refusing her medications this AM, stated "No, I do not need them.. I am fine..", explained the pros and cons of her psych medications, but continue to refuse her medications, unable to formulate a viable plan for self care, denies SI/HI, verbally billy for safety, continue with treatment plan.
[2021-11-26 15:18] VITALS: BP 120/85
[2021-11-26] MEDS: ESCITALOPRAM OXALATE 10 MG TABLET PO SCH (20:50)
[2021-11-26] MEDS: OLANZAPINE 5 MG TABLET PO SCH (20:51)
--- NOTE | 2021-11-27 02:17 | NUR ---
Received the patient at the start of the shift standing in the doorway of the charting area speaking to nobody in particular. The patient was rambling on , very hyperverbal, about nonsensical things, with high energy, dancing around the unit. This junior technical writer was unable to redirect the patient without the patient starting to escalate. She refused to have VS taken, and refused all medications. This junior technical writer provided education and encouragement to the patient regarding the importance of medications but was unsuccessful. The patient has been up to the nurses station many times during the night, talking loudly with tangential speech.Continuing to monitor the patient for safety for compliance and behavior escalation.Safety Stratiges are in place.
[2021-11-27] MEDS: NITROFURANTOIN/NITROFURAN MAC 100 MG CAPSULE PO SCH ×2 (08:33→21:00)
[2021-11-27] MEDS: ENSURE ENLIVE (VAN) 240 ML LIQUID PO SCH (08:33)
[2021-11-27] MEDS: DIVALPROEX 500 MG TABLET.DR PO SCH ×2 (08:33→21:00)
[2021-11-27] MEDS: MULTIVITAMINS,THERAPEUTIC TABLET PO SCH (08:34)
[2021-11-27] MEDS: CYANOCOBALAMIN 1,000 MCG TABLET PO SCH (08:34)
[2021-11-27] MEDS: FAMOTIDINE 20 MG TABLET PO SCH (08:34)
--- NOTE | 2021-11-27 09:12 | NUR ---
MACY Discharge Note: Pt will be discharged to [facility] [address] [place] [address] ([phone]) via Ambulance transportation at 1PM. MACY spoke with admin coordinator, Jane at the facility who states they are ready to accept the patient today. Pt is aware and agreeable with discharge plans. Pts mother. Pt is alert and oriented x4, is unable to plan for self-care at this time; however, is willing to accept care at SNF. Pt denies any suicidal or homicidal ideation. Pt will follow-up at the facility with Psychiatrist, Dr. Bernabe and Molding Plasterer, and Molding Plasterer, Dr. Santamaria. Pt presents with calm mood and congruent affect. PHARMACY: [facility] ([phone]) [address] [address]. Pt presents with calm mood and congruent affect.
--- NOTE | 2021-11-27 14:09 | NUR ---
GPS: Nursing Notes: Destructive Behavior To Self: Patient is awake and responding to her name, poor anger management, refusing her medications, stated "I am fine.. I do not need any pills..", explained the pros and cons of medications, but continue to be paranoid, stated "I cannot trust nobody here..", asking for soda when staff bring the soda to her stated "I don't want it... I don't trust you..", needy, overly demanding at times, setting limits, unable to formulate a viable plan for self care, Dr. Bernabe discontinue the discharge, patient believes that she does not belong here, continue to monitor for safety, continue with treatment plan.
--- NOTE | 2021-11-27 15:42 | NUR ---
GPS: Nursing Notes: Riese Hearing: Staff served patient with copy of Riese petition. Explained to patient the definition of a Riese. Patient expressed verbal understanding of a Riese hearing. Requested through [facility] portal Riese petition to courts. Placed Riese petition in the psych. section of chart, continue to monitor for safety, continue with treatment plan.
--- NOTE | 2021-11-27 16:23 | NUR ---
Discharge Update: Dr. Baez informed that Dr. Bernabe cancelled pt's discharge order on 11/27/21 due to patient presenting with agitation and not compliant with medication. Dr. Baez stated pt will be riesed. Pt and pt's mother, Jassi ([phone]) are aware of the discharge update. Pt's mother, Jassi was very grateful and agreeable with the discharge update.
[2021-11-27] MEDS: OLANZAPINE 5 MG TABLET PO SCH (21:00)
[2021-11-27] MEDS: ESCITALOPRAM OXALATE 10 MG TABLET PO SCH (21:00)
--- NOTE | 2021-11-28 04:36 | NUR ---
This patient refused all VS and all PO medications. She remains argumentative, impulsive, hyperverbal and with high energy. This patient has poor insight into her behavior and does not follow redirections. The patient is unable to have a reality based conversation and continues to be paranoid and delusional. Safety Stratiges in place and monitoring for behavior escalation.
[2021-11-28] MEDS: NITROFURANTOIN/NITROFURAN MAC 100 MG CAPSULE PO SCH ×2 (08:37→20:36)
[2021-11-28] MEDS: DIVALPROEX 500 MG TABLET.DR PO SCH ×2 (08:37→20:36)
[2021-11-28] MEDS: ENSURE ENLIVE (VAN) 240 ML LIQUID PO SCH (08:37)
[2021-11-28] MEDS: FAMOTIDINE 20 MG TABLET PO SCH (08:38)
[2021-11-28] MEDS: CYANOCOBALAMIN 1,000 MCG TABLET PO SCH (08:38)
[2021-11-28] MEDS: MULTIVITAMINS,THERAPEUTIC TABLET PO SCH (08:38)
--- NOTE | 2021-11-28 17:20 | NUR ---
GPS: Nursing Notes: Destructive Behavior To Self: Patient is awake and responding to her name, poor impulse control, argumentative, low and pressured speech at times, refusing her medications, believes that she does not need therm, resistant with nursing care, pacing the hallway while shouting profanities, gets easily irritable when redirected, unable to formulate a viable plan for self care, continue with treatment plan.
[2021-11-28] MEDS: ESCITALOPRAM OXALATE 10 MG TABLET PO SCH (20:36)
[2021-11-28] MEDS: OLANZAPINE 5 MG TABLET PO SCH (20:38)
--- NOTE | 2021-11-29 05:40 | NUR ---
received patient in room awake, A&0x3. Patient non compliant with medication. explained risks and benefits of medications x3, patient still refused. @2300, patient is in the hallways, verbalizing "someone taking the paper towel in the bathroom" followed by uncomprehensable words, patient noted to be agitated. Talk to the patient in calm manner. Patient then went to her room. Patient closely monitored for any behavioral changes that can be destructive to self and others. Needs attended. safety strategies in Place.
[2021-11-29 07:30] VITALS: BP 110/76
[2021-11-29] MEDS: ENSURE ENLIVE (VAN) 240 ML LIQUID PO SCH (09:00)
[2021-11-29] MEDS: FAMOTIDINE 20 MG TABLET PO SCH (09:00)
[2021-11-29] MEDS: DIVALPROEX 500 MG TABLET.DR PO SCH ×3 (09:00→21:11)
[2021-11-29] MEDS: CYANOCOBALAMIN 1,000 MCG TABLET PO SCH (09:00)
[2021-11-29] MEDS: MULTIVITAMINS,THERAPEUTIC TABLET PO SCH (09:00)
[2021-11-29] MEDS: NITROFURANTOIN/NITROFURAN MAC 100 MG CAPSULE PO SCH (09:00)
[2021-11-29 16:00] VITALS: BP 137/80
--- NOTE | 2021-11-29 16:56 | NUR ---
Received patient sleeping in her room. A/O X 3 to person, place. Pt. is demanding, needy, sarcastic, argumentative, irritable and uncooperative at times, accusatory "You're guys are playing with my life, my food, my cards, I'm very good at coping but I got enough". Compliant with medications. Denies SI/Hi AH/VH. Denies pain. Fixated on making calls. Pt. is encourage to verbalize concerns. Fall and safety precautions implemented.
--- NOTE | 2021-11-29 18:17 | NUR ---
Pt. has been accusatory towards staff, thinks people are after her, wants me to call her insurance because hospital is a fraud. Claims that staff are hiding food from her, because she is vegetarian. Delusional, thinks everyone in the hospital are persecuting her.
[2021-11-29 20:00] VITALS: BP 118/45
[2021-11-29] MEDS: ESCITALOPRAM OXALATE 10 MG TABLET PO SCH (21:00)
[2021-11-29] MEDS: OLANZAPINE 5 MG TABLET PO SCH (21:00)
--- NOTE | 2021-11-29 21:37 | NUR ---
NSG/GPS Patient observed in the hallway with irritable mood, constantly requesting the phone, fighting with person on the phone. Patient refused all HS medication. Low mood, easily agitated.
[2021-11-30 08:00] VITALS: BP 107/69
[2021-11-30] MEDS: ENSURE ENLIVE (VAN) 240 ML LIQUID PO SCH (08:51)
[2021-11-30] MEDS: FAMOTIDINE 20 MG TABLET PO SCH (08:51)
[2021-11-30] MEDS: CYANOCOBALAMIN 1,000 MCG TABLET PO SCH (08:51)
[2021-11-30] MEDS: DIVALPROEX 500 MG TABLET.DR PO SCH ×2 (08:51→20:23)
[2021-11-30] MEDS: MULTIVITAMINS,THERAPEUTIC TABLET PO SCH (08:51)
--- NOTE | 2021-11-30 11:05 | NUR ---
Gps/System Support Developer- Refusing routine am meds. claimed she does not need any medications, reviewed importance of her medications stated" I am ok , i dont need any medications" . Guarded, flat , came looking for the staff, asking if she takes her depakote , will they cancel the hearing today? Informed she needed to take all her prescribed medications , and needed to be compliant . Stayed in her room in bed most of the morning, encouraged participation in her group tx.
--- NOTE | 2021-11-30 15:20 | NUR ---
Gps/Roadway Engineer- Called Dr Bernabe informed of the Court Hearing at 1600 , if Dr Bernabe wants to join [phone] Meeting # [id number] , and Patient's Right # [phone]
--- NOTE | 2021-11-30 15:45 | NUR ---
Gps/Senior Policy Analyst- Per patient's right Advocate Abelardo, patient (Marci) wants to attend the Court Hearing
[2021-11-30 16:00] VITALS: BP 115/82
[2021-11-30] MEDS ORDERED: HALOPERIDOL LACTATE 5 MG/1 ML VIAL IM PRN ×2 (16:15→17:30)
--- NOTE | 2021-11-30 16:45 | NUR ---
GPS: RIESE PETITION HEARING DONE TODAY AND AFTER THE HEARING, PT DECIDED TO FILE WRIT PETITION AND WAS FILED AND FAXED TO THE SUPERIOR HEARING COURT AND PER COURT, THE 2ND HEARING CAN HAPPEN ON SATURDAY. INFORMED DR QUEEN AND LOVE CASTLE, PT TO BE DISCHARGE ON SATURDAY. PATHOLOGIST AND BRAIN, DIRECTOR OF MHU MADE AWARE. PT HAVE A RIESE ORDERED FOR HALDOL LACTATE 5MG/ML IM BID EVERY TIME PT REFUSED TAKING ZYPREXA 5MG PO. PT ALSO MADE AWARE OF IT.
--- NOTE | 2021-11-30 16:58 | NUR ---
Gps/Jose Alfredo- Jos approved, patient was well informed , if she refuses Zypxa po. she'll be given Haldol 5 mg IM , reviewed medication as ordered.
[2021-11-30] MEDS: OLANZAPINE 5 MG TABLET PO SCH ×2 (17:23→17:26)
[2021-11-30 20:07] VITALS: BP 132/69
[2021-11-30] MEDS: ESCITALOPRAM OXALATE 10 MG TABLET PO SCH (20:23)
[2021-11-30] MEDS: TEMAZEPAM 7.5 MG CAPSULE PO PRN (21:51)
[2021-11-30] MEDS: CLONAZEPAM 0.5 MG TABLET PO PRN ×2 (21:51→21:52)
[2021-12-01 07:30] VITALS: BP 96/56
[2021-12-01] MEDS: FAMOTIDINE 20 MG TABLET PO SCH (09:00)
[2021-12-01] MEDS: CYANOCOBALAMIN 1,000 MCG TABLET PO SCH (09:00)
[2021-12-01] MEDS: MULTIVITAMINS,THERAPEUTIC TABLET PO SCH (09:00)
[2021-12-01] MEDS: ENSURE ENLIVE (VAN) 240 ML LIQUID PO SCH (09:00)
[2021-12-01] MEDS: OLANZAPINE 5 MG TABLET PO SCH ×2 (09:07→16:50)
[2021-12-01] MEDS: DIVALPROEX 500 MG TABLET.DR PO SCH ×2 (09:08→20:28)
[2021-12-01 16:38] VITALS: BP 101/58
--- NOTE | 2021-12-01 16:50 | NUR ---
Gps/Long Term Care Social Worker- Stayed in her room in bed most of the day, sleeping on and off, claimed she does not belong here , she cant wait to leave . Compliant with her routine meds.
[2021-12-01] MEDS: ESCITALOPRAM OXALATE 10 MG TABLET PO SCH (20:28)
[2021-12-01 22:28] VITALS: BP 99/52
[2021-12-02 07:30] VITALS: BP 102/45
[2021-12-02] MEDS: DIVALPROEX 500 MG TABLET.DR PO SCH ×2 (08:45→20:29)
[2021-12-02] MEDS: OLANZAPINE 5 MG TABLET PO SCH ×2 (08:45→16:41)
[2021-12-02] MEDS: CYANOCOBALAMIN 1,000 MCG TABLET PO SCH (08:47)
[2021-12-02] MEDS: MULTIVITAMINS,THERAPEUTIC TABLET PO SCH (08:47)
[2021-12-02] MEDS: FAMOTIDINE 20 MG TABLET PO SCH (08:48)
[2021-12-02] MEDS: ENSURE ENLIVE (VAN) 240 ML LIQUID PO SCH (08:48)
--- NOTE | 2021-12-02 15:43 | NUR ---
Gps/Head Of Ict-Occ. noted interactions with her peers, noted irritability , gets easily upset , abruptly changes her request , mood changes to being pleasant to angry affect
[2021-12-02 16:00] VITALS: BP 106/69
[2021-12-02] MEDS: ESCITALOPRAM OXALATE 10 MG TABLET PO SCH (20:29)
[2021-12-02 20:39] VITALS: BP 115/70
[2021-12-03] MEDS: TEMAZEPAM 7.5 MG CAPSULE PO PRN (01:06)
--- NOTE | 2021-12-03 06:59 | NUR ---
GPS: received patient in the hallway, interacting with staff in the station. Patient noted in manic state as she kept pacing the nielsen, calling and yelling at the phone. Patient noted with delusion that staff and psychiatrist is keeping her here and manipulating her medications. Informed patient that she will be discharge on saturday. patient understandable. Closely monitored for and escalation of mood. safety strategies in place
[2021-12-03 07:30] VITALS: BP 161/53
[2021-12-03] MEDS: DIVALPROEX 500 MG TABLET.DR PO SCH ×2 (08:34→20:27)
[2021-12-03] MEDS: OLANZAPINE 5 MG TABLET PO SCH ×2 (08:34→16:29)
[2021-12-03] MEDS: ENSURE ENLIVE (VAN) 240 ML LIQUID PO SCH (08:35)
[2021-12-03] MEDS: MULTIVITAMINS,THERAPEUTIC TABLET PO SCH (08:37)
[2021-12-03] MEDS: CYANOCOBALAMIN 1,000 MCG TABLET PO SCH (08:37)
[2021-12-03] MEDS: FAMOTIDINE 20 MG TABLET PO SCH (08:37)
--- NOTE | 2021-12-03 12:52 | NUR ---
Gps/Stockroom Supervisor- Pacing back and forth the hallway , kept asking for the phone, was able to talked to her mother. Continued compliance with her routine psych. meds. noted. Aware of her dc. plan for tomorrow.
[2021-12-03 20:00] VITALS: BP 118/67
[2021-12-03] MEDS: ESCITALOPRAM OXALATE 10 MG TABLET PO SCH (20:27)
--- NOTE | 2021-12-03 21:08 | NUR ---
Pt received ambulating unit hallway. Paranoid, delusional, labile, tangential. Quite needy and excessively at nurses station with multiple different requests. Limit setting provided. Pt exhibits bizarre behavior, and will come to the nurses station at times completely unprovoked, and will tell the nurses "i know you don't like me, don't you?" Redirected as needed.
[2021-12-04 08:00] VITALS: BP 140/90
[2021-12-04] MEDS: DIVALPROEX 500 MG TABLET.DR PO SCH (08:57)
[2021-12-04] MEDS: OLANZAPINE 5 MG TABLET PO SCH (08:57)
[2021-12-04] MEDS: CYANOCOBALAMIN 1,000 MCG TABLET PO SCH (08:58)
[2021-12-04] MEDS: MULTIVITAMINS,THERAPEUTIC TABLET PO SCH (08:58)
[2021-12-04] MEDS: FAMOTIDINE 20 MG TABLET PO SCH (08:58)
[2021-12-04] MEDS: ENSURE ENLIVE (VAN) 240 ML LIQUID PO SCH (08:58)
--- NOTE | 2021-12-04 10:31 | NUR ---
[facility] Discharge Note: Pt will be discharged with a tap card at 11AM. [facility] offered nursing home facilities and sober livings to pt and pt continuously refused both. Pt stated, I want to be discharged on my own because I know where I want to go, and I dont need to give you the address. [facility] offered to provide sober living resources for the pt when pt stated she has sober livings she knows of. Pt also refused SWs referral and stated to just be given a tap card and her belongings upon discharge. [facility] spoke with pts mother, Jassi ([phone]) and stated pts refusal of SWs and MDs recommendations of SNFs and sober livings and the current discharge plan. Jassi stated she wishes the pt would accept the help, but she understands pts refusal. [facility] informed pts, MD and DNP of pts current discharge plan and refusal of resources. Pt is alert and oriented x4, is unable to plan for self-care at this time; however, pt is refusing SNF and sober living options by the MHU and stating to be discharged with a tap card on her own. Pt signed a homeless waiver packet with attached resources for shelters. A copy was also placed in the chart. Pt denies any suicidal or homicidal ideation. [facility] will provide pt with outpatient services at [facility] upon discharge, a homeless packet with correction resources, substance use referrals as well as sober living walk-in shelters for the pt. MACY will also place copies in the pts chart. Pt stated she will get her medications prescribed by MD at any [facility] pharmacy. Pt continues to refuse all services offered by [facility] upon discharge.
--- NOTE | 2021-12-04 11:30 | NUR ---
GPS: Nursing Notes: Discharge Notes: Patient is awake and responding to her name, argumentative at times, compliant with her psych. medications, following staff directions, participated in therapeutic groups this AM, denies SI/HI, denies AH/VH, denies pain or discomfort, denies SOB, A/Ox4, discharge to self, tap card given to patient, pair of shoes provided to patient, refusing any recommendations from the psychiatrist or the manager social, stated that she want to be discharge to the street because she knows where to go, refusing to give any information, instructions and prescription given to the patient. Patient's mother - Jassi informed of discharge by manager social. [facility] will provide pt with outpatient services at [facility] upon discharge, a homeless packet with [facility] resources, substance use referrals as well as sober living walk-in shelters for the pt. MACY will also place copies in the pts chart. Pt stated she will get her medications prescribed by MD at any [facility] pharmacy. Pt continues to refuse all services offered by [facility] upon discharge, staff escorted her to the main exit of the hospital.
== END 2021-12-04 11:30 | disposition home or self-care (01) | DRG 885 ==
LOC: ER 02:11 → GPS 02:27
PROVIDERS: ADMIT Nurse Practitioner Psychiatric/Mental Health; ATTEND Internal Medicine
DX: F25.0 Schizoaffective disorder, bipolar type (principal); N39.0 Urinary tract infection, site not specified; R45.851 Suicidal ideations; F32.9 Major depressive disorder, single episode, unspecified; Z59.00 Homelessness unspecified; E53.8 Deficiency of other specified B group vitamins; F17.210 Nicotine dependence, cigarettes, uncomplicated; G47.00 Insomnia, unspecified; F41.9 Anxiety disorder, unspecified; Z79.899 Other long term (current) drug therapy; Z20.822 Contact with and (suspected) exposure to COVID-19; F19.11 Other psychoactive substance abuse, in remission; Z87.891 Personal history of nicotine dependence; Z91.19 Patient's noncompliance with other medical treatment and regimen; F39 Unspecified mood [affective] disorder; F60.3 Borderline personality disorder
CPT/HCPCS: 36415; 80164; 83735; 84100; 84443; 85025; 87086; 93005; A4663; G0480; J1200; J2060; J3486; J3490

== ENCOUNTER 2022-02-23 13:50 | Inpatient (IN) | payer MEDICARE, OTHER ==
[~2022-02-23] VITALS: Ht 172.7 cm; Wt 61.2 kg
--- NOTE | 2022-02-23 14:20 | NUR ---
Patient said that she is "in between" sober living home and stayed at a hotel last night. Patient denies being homeless. She is calm & cooperative.
[2022-02-23 14:47] LABS: HEMATOCRIT 34.8 % (31.2-41.9); MEAN CORPUSCULAR HEMOGLOBIN 31.5 uug (24.7-32.8); MEAN CORPUSCULAR VOLUME 92.2 fL (75.5-95.3); PLATELET COUNT (AUTO) 236 K/uL (179-408)
[2022-02-23 14:57] LABS: ETHANOL < 3 MG/DL (0-0)
[2022-02-23 14:58] LABS: *BILIRUBIN,URIN NEGATIVE (NEGATIVE); *BLOOD, URINE TRACE (NEGATIVE); *CLARITY,URINE CLEAR (CLEAR); *COLOR,URINE YELLOW (YELLOW); *KETONES,URINE TRACE (NEGATIVE); *UROBILINOGEN,URINE 0.2 E.U./dl (NORMAL); LEUKOCYTE ESTERASE ,URINE NEGATIVE (NEGATIVE); NITRITE, URINE NEGATIVE (NEGATIVE); PH,URINE 5.5 (5.0-8.0); UGLUCOSE NEGATIVE (NEGATIVE)
[2022-02-23 15:08] LABS: CARBON DIOXIDE 27 mmol/L (21-32); CHLORIDE 105 mmol/L (98-107); CREATININE 0.8 mg/dL (0.6-1.3); GLUCOSE 93 mg/dL (74-106); POTASSIUM 3.8 mmol/L (3.5-5.1); UREA NITROGEN, BLOOD 14 mg/dL (7-18)
[2022-02-23 15:12] LABS: *AMPHETAMINE, URINE NEGATIVE (NEGATIVE); *CANNABINOID, URINE NEGATIVE (NEGATIVE); *COCCAINE, URINE NEGATIVE (NEGATIVE); *OPIATE, URINE NEGATIVE (NEGATIVE); *PHENCYCLIDINE SCREEN,URINE NEGATIVE (NEGATIVE)
[2022-02-23 15:22] LABS: ACETAMINOPHEN < 2.0 ug/mL (10-30); ALANINE AMINOTRANSFERASE 21 U/L (14-59); ALKALINE PHOSPHATASE 97 U/L (50-136); ASPARTATE AMINOTRANSFERASE 18 U/L (15-37); BILIRUBIN,DIRECT 0.2 mg/dL (0.0-0.2); BILIRUBIN,TOTAL 0.8 mg/dL (0.2-1.0); TOTAL PROTEIN, SERUM 7.4 g/dL (6.4-8.2)
--- NOTE | 2022-02-23 15:32 | NUR ---
Medically cleared by Dr Zazueta. Called Mark Brooks from PET TEAM who will come eval patient.
[2022-02-23 15:52] LABS: BACTERIA,URINE FEW /HPF (NONE SEEN); SQUAMOUS EPITHELIAL CELL,UR FEW /HPF (NONE SEEN); WBC,URINE 0-3 /HPF (0-3)
--- NOTE | 2022-02-23 16:39 | NUR ---
Mark Brooks is here in ER evaluating the patient.
[2022-02-23] MEDS ORDERED: DIVA250T4 PO (16:42)
--- NOTE | 2022-02-23 17:26 | NUR ---
Transfered to MHU via gurny with no distress noted.
[2022-02-23 17:45] VITALS: BP 133/80
[2022-02-23] MEDS ORDERED: ZOLPIDEM 5 MG TABLET PO PRN (18:00)
[2022-02-23] MEDS ORDERED: MAGNESIUM HYDROXIDE 30 ML LIQUID UDC PO PRN (18:00)
[2022-02-23] MEDS ORDERED: MAG HYDROX/AL HYDROX/SIMETH 30 ML LIQUID UDC PO PRN (18:00)
[2022-02-23] MEDS ORDERED: LORAZEPAM 0.5 MG TABLET PO PRN (18:00)
[2022-02-23] MEDS ORDERED: ACETAMINOPHEN 325 MG TABLET PO PRN (18:00)
--- NOTE | 2022-02-23 18:07 | NUR ---
Admitted a case of 56 years old female from [facility] ER with history of Psychosis. Patient is on 5150 hold status. Patient arrived in a wheelchair accompanied by POWER REGULATOR. Initial report given by Diandra EVANS. On admission patient was cooperative to physical assessment. Upon face to face patient appeared alert, oriented to person and place, anxious, redirectable, cooperative. Pt. denies SI at this time. Pt. denies AH/VH. Patient was offered brief orientation to unit rules and policies and given a copy of patient's rights handbook. Psychiatrist Dr. Sales and RN ADMISSIONS Jean Jasso were informed of this admission. Patient is free from pain or any discomfort. Emotional support provided. Fall and safety precautions implemented.
[2022-02-23] MEDS ORDERED: BLOOD SUGAR DIAGNOSTIC 1 EACH STRIP VI ONE (18:15)
[2022-02-23 20:11] VITALS: BP 103/67
--- NOTE | 2022-02-24 06:21 | NUR ---
Received patient in bed sleeping, easily arousable, responsive to name. A&0x2. Denies SI. Safety strategies contract with the mortgage or loan underwriter. Patient noted with manic episodes, goes to station and having flight of ideas, labile mood. Re-direct patient and re-orient to reality. Patient slept 7.15 hour. closely monitoring observed.
[2022-02-24 09:10] VITALS: BP 133/59
--- NOTE | 2022-02-24 13:49 | NUR ---
Received patient is alert and oriented, agitated with episode of yelling and screaming to staffs. refused all meals and Lab test.labile mood flight of ideas,restless and constantly coming to nurse station yelling at nurses.frequent re-directed patient ,will continue close monitoring.
[2022-02-24] MEDS: DIVALPROEX ER 500 MG TAB.SR.24H PO SCH (17:00)
[2022-02-24] MEDS: ARIPIPRAZOLE 10 MG TABLET PO SCH (17:00)
--- NOTE | 2022-02-24 17:35 | NUR ---
patient seen by psychiatrist ,refused all medication continue with episode of yelling at time.
--- NOTE | 2022-02-25 05:12 | NUR ---
GPS NOTES: Received patient in the station in her manic behavior, pacing in and out of her room, following staff and throwing verbally aggressive tone. Approached her in a calm manner, patient appears to be pleasant then switch her mood to be angry and having flight of ideas. Re-orient patient, patient went back to her room and isolate herself. Patient refused vital signs. Patient also refused medications when offered, rather yells at ad writer " what did that yogesh prescribed me? I don't need a depakote or abilify, It messed me up that last time, it made me dependent on it, they advice me to say I'm suicidal so I can get help but I"m not suicidal, I need AAA that's all there is". Patient educated on the medications but still refused. Patient also very suspicious and paranoid. Poor insight and judgement. Patient provided snacks w/ good appetite. Closely monitored for any escalation of behavior. Safety precautions at all times.
[2022-02-25 07:51] VITALS: BP 122/70
[2022-02-25] MEDS: DIVALPROEX ER 500 MG TAB.SR.24H PO SCH (09:00)
[2022-02-25] MEDS: ARIPIPRAZOLE 10 MG TABLET PO SCH ×2 (09:00→17:00)
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
[2022-02-25 15:53] VITALS: BP 105/81
[2022-02-25 19:45] VITALS: BP 121/85
--- NOTE | 2022-02-26 05:51 | NUR ---
GPS: Pt.awake at this time,got out of her room and started accusing staff of stealing her papers that have phone numbers on them. Explained to pt.that nobody has gone in her room the whole night and maybe she just misplaced them. Pt.is angry,agitated,verbally abusive,paranoid. Re-directed by staff by refused. Will continue to monitor.
--- NOTE | 2022-02-26 06:03 | NUR ---
GPS: Pt.went to nurses station just to show staff that she found the paper that she was looking for inside her toilet. Continues to accuse staff of throwing her papers in the toilet. Remains irritable and paranoid. Refuses prn meds.when offered.
[2022-02-26] MEDS: DIVALPROEX ER 500 MG TAB.SR.24H PO SCH (08:24)
[2022-02-26] MEDS: ARIPIPRAZOLE 10 MG TABLET PO SCH (08:24)
[2022-02-26] MEDS: OLANZAPINE 5 MG TABLET PO SCH ×2 (09:45→16:23)
--- NOTE | 2022-02-26 11:28 | NUR ---
GPS: Nursing Notes: Noncompliant With Medications: Patient is awake and responding to her name, hyperverbal, impaired judgment, verbal abusive toward staff and peers, loud and pressured speech, refusing to be compliant with psych. medications, believes that there is nothing wrong with her, argumentative, constantly talking, paranoid behavior, denies SI, AWOL, risk, patient wants to leave the unit, unable to formulate a viable plan for self care, continue to monitor for safety, continue with treatment plan.
--- NOTE | 2022-02-26 14:40 | NUR ---
[facility] Initial Discharge Plan: Pt does not have a current address. Pt stated she came from a sober living. Pt refuses to disclose further information. Pt currently refuses SW to talk to pt's mother, Jassi ([phone]). [facility] will continue to work with pt and MD to ensure a safe and proper discharge plan.
--- NOTE | 2022-02-26 15:06 | NUR ---
Firearms Report: Case Assembler completed and submitted a [employer]J firearms report for 5150 a danger to self. A copy of report has been placed in patient chart.
--- NOTE | 2022-02-26 15:12 | NUR ---
[facility] Family Contact: Pt stated to SW that pt is not authorizing calls to her mother. Pt stated to SW to only speak with her. SW informed pt if there is anyone else she would like SW to contact. Pt stated "No".
--- NOTE | 2022-02-26 20:33 | NUR ---
received patient in the hallway. she is noted A/O x3 able to verbalized her feelings. She is noted with poor insight and judgment as to her admission to MHU. upon interview, patient stated that she is here because she was misunderstood. And that She was never wanted to hurt herself. Patient denied SI/HI/VH/AH she is able to CFS. her V/S are stable. she is in no distress. PO fluids and snacks were given. She is reassured for her safety. safety and fall precautions are in place. will continue to monitor.
--- NOTE | 2022-02-26 21:00 | NUR ---
Patient refused V/S. she was informed of the importance to comply with V/S to prevent complications yet refused. She appears depressed; however, she minimized her symptoms. will continue to monitor.
[2022-02-27] MEDS: DIVALPROEX ER 500 MG TAB.SR.24H PO SCH (08:28)
[2022-02-27] MEDS: OLANZAPINE 5 MG TABLET PO SCH ×2 (08:28→16:21)
[2022-02-27] MEDS: ENSURE ENLIVE (VAN) 240 ML LIQUID PO SCH ×2 (10:15→16:21)
--- NOTE | 2022-02-27 11:37 | NUR ---
GPS: Nursing Notes: Noncompliance with Medications: Patient is awake and responding to her name, poor impulse control, manipulative behavior, saying one thing to one staff and another thing to another staff, paranoid behavior, refusing her psych. medications, stated "I am here for pills... They made a mistake.. I need to go home..", episodes of talking incoherently, believes that the staff is against her, labile, believes that we are trying to poison her, unpredictable behavior, using profanities toward staff and peers, unable to formulate a viable plan for self care, continue to monitor for safety, continue with treatment plan.
--- NOTE | 2022-02-27 14:32 | NUR ---
GPS: Nursing Notes: Riese Petition: Staff served patient with copy of Riese petition. Explained to patient the definition of a Riese. Patient expressed verbal understanding of a Riese hearing. Faxed Riese petition to courts at fax # . Placed Riese petition in legal section of the chart. Staff called Courts and spoke with receptionist airline lounge - Charissa to confirm that she receive the faxed Riese petition, per Charissa, she got it, continue with treatment plan.
[2022-02-28] MEDS: DIVALPROEX ER 500 MG TAB.SR.24H PO SCH (08:29)
[2022-02-28] MEDS: OLANZAPINE 5 MG TABLET PO SCH ×2 (08:29→17:00)
[2022-02-28] MEDS: ENSURE ENLIVE (VAN) 240 ML LIQUID PO SCH ×2 (08:29→17:21)
--- NOTE | 2022-02-28 11:43 | NUR ---
Court hearing was scheduled this morning to continuing treatment under 5250 hold, and it was granted by Willow Machine Tender Trudi Nielsen as Gravely Disabled.
--- NOTE | 2022-02-28 15:54 | NUR ---
Received patient sleeping in her room. A/O X 2 to person, place. Pt. is delusional " Why kitchen is always messing my orders up? Why they don't like me? Why is everybody against me?" "I hate everyone" "I want to get out of this shit hole" Pt. is restless, pacing in the hallway, racing thoughts, hyperverbal. Refuses medications. Pt. is encourage to vent feelings and emotions. Fall and safety precautions implemented.
--- NOTE | 2022-02-28 21:19 | NUR ---
GPS: Pt.came up to the nurses station few times and seems open to the idea of trying to start taking her meds.prescribed. Pt.worried about " going to court for her Riese petition". Explained to pt.risks vs benefits of taking her meds. but pt.seems unable to make up her mind. Pt.keeps giving excuses and keeps going back and forth. Prefers to speak with psychiatrist first tomorrow.
--- NOTE | 2022-03-01 06:34 | NUR ---
GPS: Remains asleep at this time. In no acute resp.distress noted. Behavior monitoring continues. Will continue to encourage to take meds.prescribed.
[2022-03-01] MEDS: ENSURE ENLIVE (VAN) 240 ML LIQUID PO SCH ×2 (08:00→17:00)
[2022-03-01 08:15] VITALS: BP 113/66
[2022-03-01] MEDS: DIVALPROEX ER 500 MG TAB.SR.24H PO SCH ×2 (09:00→14:07)
[2022-03-01] MEDS: OLANZAPINE 5 MG TABLET PO SCH ×3 (09:00→18:01)
--- NOTE | 2022-03-01 09:38 | NUR ---
Gps/Biomass Production Manager- Patient refused to take her routine am. Psych. meds.( Depakote and Zyprexa) per patient " i'll wait for Court hearing if i really need it, i am a recovering alcoholic , i might not need those meds"
[2022-03-01] MEDS: HALOPERIDOL LACTATE 5 MG/1 ML VIAL IM SCH ×2 (12:30→17:00)
--- NOTE | 2022-03-01 12:40 | NUR ---
GPS: PT PARTICIPATED RIESE HEARING TODAY. REFEREE FROM SUPERIOR COURT APPROVED THE RIESE ORDER FILED BY PSYCHIATRIST. PT PARTICIPATED WELL, NO ANXIETY NOTED. PT WENT TO NURSES STATION AFTER HEARING AND STARTED BEING LOUD, HYPERVERBAL, THREATENING STAFF THAT "THERE'S GOING TO BE A LAWSUIT".
--- NOTE | 2022-03-01 14:11 | NUR ---
Gps/Drug Abuse Worker- Called Dr Bernabe, informed patient requesting to take her previous am medications she refused this am , claimed she'll take now (Depakote ER /Zyprexa) .Patient took meds. without any difficulty noted.
--- NOTE | 2022-03-01 15:18 | NUR ---
GPS: PT WRIT PETITION FAXED AND FILED TO [place] [address] PER PT REQUEST. PSYCHIATRIST MADE AWARE. EXPLAINED TO PT THAT IT TAKES 2-3 BUSINESS DAYS BEFORE GETTING THE 2ND HEARING.
[2022-03-01 16:00] VITALS: BP 116/72
--- NOTE | 2022-03-01 18:02 | NUR ---
Gps/Plug Grower- Patient compliant with pm zyprexa 5 mg po, no haldol IM given,
[2022-03-01 20:00] VITALS: BP 97/56
--- NOTE | 2022-03-02 05:04 | NUR ---
Patient isolative and stays in her room during shift. Easily arousable, A&Ox2. Only comes out her room x1. Ambulatory and self-care. No behavioral issues noted during shift. Closely monitoring observed, safety measure in place.
[2022-03-02 07:47] VITALS: BP 103/57
[2022-03-02] MEDS: ENSURE ENLIVE (VAN) 240 ML LIQUID PO SCH ×2 (08:00→17:00)
[2022-03-02] MEDS: DIVALPROEX ER 500 MG TAB.SR.24H PO SCH (08:51)
[2022-03-02] MEDS: OLANZAPINE 5 MG TABLET PO SCH ×2 (08:51→17:37)
[2022-03-02] MEDS: HALOPERIDOL LACTATE 5 MG/1 ML VIAL IM SCH ×2 (08:55→17:00)
--- NOTE | 2022-03-02 09:33 | NUR ---
Clinical SW Note: Pt refused to participate in the substance use intervention at first. Pt briefly participated and shortly after stated to this SW that it is her private struggle and she does not need to explain herself anymore. Pt stated her AA meetings are none of our business. SW placed a copy of the substance use intervention in pt's chart.
--- NOTE | 2022-03-02 11:24 | NUR ---
GPS: RECEIVED WRIT PETITION FORM FROM [facility] [place]. INFORMED PT, PHARMACOMETRICIAN AND PSYCHIATRIST MADE AWARE.
--- NOTE | 2022-03-02 13:34 | NUR ---
GPS: SANJAY, EMPLOYEE AT [employer] CALLED CONFIRMING FOR PT WRIT PETITION HEARING THIS COMING SATURDAY. INFORMED SANJAY THAT PT WILL BE DISCHARGE TOMORROW PER PSYCHIATRIST.
--- NOTE | 2022-03-02 14:26 | NUR ---
Gps/Foundation Director- Compliant with routine medications, stays in her room most of the morning. Encouraged to shower, patient refused. Had been quiet most of the morning .
[2022-03-02 16:10] VITALS: BP 90/51
--- NOTE | 2022-03-02 16:24 | NUR ---
[facility] Early Discharge Note: Pt will be discharged with a tap card on Saturday, the at 11AM. SW offered custodial facilities and sober livings to pt and pt continuously refused both. Pt stated, I want to be discharged on a self-care plan and I dont want to give you more information. Thats my privacy. SW offered to provide sober living resources for the pt when pt stated she has sober livings she knows of. Pt refused SWs referrals OF [facility] (Behavioral Health) , [facility] Self-helpl[facility] ([facility]) Contact number , AND [facility] [id number] [place] [id number] and pt refused and stated to just be given a tap card and her belongings upon discharge. Pt refused SW to speak to pts motherJassi ([phone]). SW informed pts, MD of pts current discharge plan and refusal of resources. Pts DNP is aware. Pt is alert and oriented x4, is unable to plan for self-care at this time; however, pt is refusing SNF and sober living options by this SW and pts DNP. Pt stated to SW that she does not want to hear about the referrals because she is not going to them. Pt refused to sign a homeless waiver packet with attached resources for shelters. A copy was also placed in the chart. Pt denies any suicidal or homicidal ideation. provided [facility] for outpatient psychiatrist and therapist follow-up and and pt refused. Pt stated she refuses to give this [facility] her pharmacy information for follow-up.
--- NOTE | 2022-03-02 18:00 | NUR ---
Gps/Program Scheduler- Patient kept coming in to the Nurses station, anxious, claimed she worried someone stole her money , and staff didnt put in her record , amount of money she came in with. Reassured patient with check her belongings and valuable before she discharge . Refused to eat dinner, claimed she does not have ant appetite.patient was compliant with her routine psych. meds.
[2022-03-02 20:47] VITALS: BP 101/77
[2022-03-03 07:43] VITALS: BP 106/68
[2022-03-03] MEDS: ENSURE ENLIVE (VAN) 240 ML LIQUID PO SCH (08:38)
[2022-03-03] MEDS: OLANZAPINE 5 MG TABLET PO SCH (08:39)
[2022-03-03] MEDS: DIVALPROEX ER 500 MG TAB.SR.24H PO SCH (08:39)
[2022-03-03] MEDS: HALOPERIDOL LACTATE 5 MG/1 ML VIAL IM SCH (08:42)
--- NOTE | 2022-03-03 10:55 | NUR ---
Pt left unit with all noted belongings and paperwork, including a TAP card for transportation received by nursing supervisor phosphoric acid. Copies in chart. Steady gait. Escorted out to front door of hospital with DIGITAL FORENSIC EXAMINER. No aggressive or combative behavior noted. Denies SI at this time. Anxious and ready to leave. Able to make all needs known. In no acute distress.
== END 2022-03-03 11:00 | disposition home or self-care (01) | DRG 885 ==
LOC: ER 13:50 → GPS 17:18
PROVIDERS: ADMIT Psychiatry & Neurology Psychiatry; ATTEND Nurse Practitioner Family
DX: F25.0 Schizoaffective disorder, bipolar type (principal); R45.851 Suicidal ideations; F41.9 Anxiety disorder, unspecified; G47.00 Insomnia, unspecified; Z59.00 Homelessness unspecified; F10.10 Alcohol abuse, uncomplicated; Y90.0 Blood alcohol level of less than 20 mg/100 ml; F19.11 Other psychoactive substance abuse, in remission; Z79.899 Other long term (current) drug therapy; Z91.14 Patient's other noncompliance with medication regimen
CPT/HCPCS: 36415; 85025; 97161; A4663; G0480

== ENCOUNTER 2022-03-24 20:28 | Emergency (ER) | payer MEDICARE, OTHER ==
[2022-03-25] MEDS ORDERED: DIVA250T4 PO (05:34)
== END 2022-03-24 23:58 | disposition left against medical advice (07) ==
LOC: ER 20:28
DX: Z53.21 Procedure and treatment not carried out due to patient leaving prior to being seen by health care provider (principal)

== ENCOUNTER 2022-03-25 01:47 | Emergency (ER) | payer MEDICARE, OTHER ==
[~2022-03-25] VITALS: Ht 172.7 cm; Wt 61.2 kg
[2022-03-25 03:10] LABS: HEMATOCRIT 33.2 % (31.2-41.9); MEAN CORPUSCULAR HEMOGLOBIN 31.4 uug (24.7-32.8); MEAN CORPUSCULAR VOLUME 92.2 fL (75.5-95.3); PLATELET COUNT (AUTO) 221 K/uL (179-408)
[2022-03-25 03:24] LABS: CARBON DIOXIDE 30 mmol/L (21-32); CHLORIDE 105 mmol/L (98-107); CREATININE 0.7 mg/dL (0.6-1.3); GLUCOSE 89 mg/dL (74-106); POTASSIUM 4.1 mmol/L (3.5-5.1); UREA NITROGEN, BLOOD 5 mg/dL (7-18)
[2022-03-25 03:31] LABS: ETHANOL < 3 MG/DL (0-0)
[2022-03-25 03:37] LABS: ALANINE AMINOTRANSFERASE 11 U/L (14-59); ALKALINE PHOSPHATASE 68 U/L (50-136); ASPARTATE AMINOTRANSFERASE 18 U/L (15-37); BILIRUBIN,DIRECT 0.2 mg/dL (0.0-0.2); BILIRUBIN,TOTAL 0.6 mg/dL (0.2-1.0); CREATINE KINASE, TOTAL 216 U/L (26-192); TOTAL PROTEIN, SERUM 7.2 g/dL (6.4-8.2)
[2022-03-25 03:38] LABS: ACETAMINOPHEN < 2.0 ug/mL (10-30)
--- NOTE | 2022-03-25 04:28 | NUR ---
ARACELI FROM CRISIS PSYCHIATRIC EVALUATION TEAM NOTIFIED OF CONSULT.
[2022-03-25] MEDS ORDERED: DIVA250T4 PO (05:34)
--- NOTE | 2022-03-25 07:08 | NUR ---
DISCHARGE INSTRUCTIONS PROVIDED AND DISCUSSED. AGREEABLE TO PLANS OF CARE. DENIES ANY SUICIDAL THOUGHTS OR IDEATION. CRISIS PSYCHIATRIC SEED LABORATORY TECHNICIAN NOTED THAT PATIENT DID NOT MEET ACUTE PSYCHIATRIC CRITERIA. DISCHARGE INSTRUCTIONS PROVIDED.
== END 2022-03-25 07:12 | disposition home or self-care (01) ==
LOC: ER 02:48
DX: F31.9 Bipolar disorder, unspecified (principal); F15.20 Other stimulant dependence, uncomplicated; F14.10 Cocaine abuse, uncomplicated; F20.9 Schizophrenia, unspecified; Z79.899 Other long term (current) drug therapy; Z20.822 Contact with and (suspected) exposure to COVID-19
CPT/HCPCS: 36415; 85025; A4663; G0480

== ENCOUNTER 2022-04-10 16:29 | Emergency (ER) | payer MEDICARE, OTHER ==
[~2022-04-10] VITALS: Ht 172.7 cm; Wt 61.2 kg
[~2022-04-10 16:29] MED LIST changes: -CEPH500T PO; -DEPAKOTE PO; +DIVA250T4 PO; -LORA2TAB95 PO
[2022-04-10 17:05] LABS: HEMATOCRIT 36.4 % (31.2-41.9); MEAN CORPUSCULAR HEMOGLOBIN 31.7 uug (24.7-32.8); MEAN CORPUSCULAR VOLUME 96.5 fL (75.5-95.3); PLATELET COUNT (AUTO) 302 K/uL (179-408)
[2022-04-10 17:23] LABS: ALANINE AMINOTRANSFERASE 24 U/L (14-59); ALKALINE PHOSPHATASE 80 U/L (50-136); ASPARTATE AMINOTRANSFERASE 16 U/L (15-37); BILIRUBIN,DIRECT 0.2 mg/dL (0.0-0.2); BILIRUBIN,TOTAL 0.6 mg/dL (0.2-1.0); CARBON DIOXIDE 23 mmol/L (21-32); CHLORIDE 106 mmol/L (98-107); CREATININE 0.7 mg/dL (0.6-1.3); GLUCOSE 95 mg/dL (74-106); POTASSIUM 3.4 mmol/L (3.5-5.1); TOTAL PROTEIN, SERUM 7.7 g/dL (6.4-8.2); UREA NITROGEN, BLOOD 8 mg/dL (7-18)
[2022-04-10 17:24] LABS: ACETAMINOPHEN < 2.0 ug/mL (10-30)
--- NOTE | 2022-04-10 17:24 | NUR ---
Blood, urine and COVID tests' results are pending. Juice and iced water were given.
[2022-04-10 17:26] LABS: *BLOOD, URINE NEGATIVE (NEGATIVE); *CLARITY,URINE CLOUDY (CLEAR); *COLOR,URINE YELLOW (YELLOW); *KETONES,URINE NEGATIVE (NEGATIVE); LEUKOCYTE ESTERASE ,URINE 1+ (NEGATIVE); NITRITE, URINE NEGATIVE (NEGATIVE); PH,URINE 5.5 (5.0-8.0); UGLUCOSE NEGATIVE (NEGATIVE)
[2022-04-10 17:28] LABS: *BILIRUBIN,URIN 1+ (NEGATIVE)
[2022-04-10 17:33] LABS: ETHANOL < 3 MG/DL (0-0)
[2022-04-10 17:34] LABS: *AMPHETAMINE, URINE POSITIVE (NEGATIVE); *CANNABINOID, URINE NEGATIVE (NEGATIVE); *COCCAINE, URINE NEGATIVE (NEGATIVE); *OPIATE, URINE NEGATIVE (NEGATIVE); *PHENCYCLIDINE SCREEN,URINE NEGATIVE (NEGATIVE)
--- NOTE | 2022-04-10 18:36 | NUR ---
Patient is medically cleared by Dr Greco for possible psychiatric admission. Patient ate vegetarian dinner tray with good appetite.
--- NOTE | 2022-04-10 18:43 | NUR ---
Note danii in EDM - 04/10/22 at 1852 by LINDA Patient discharged to home in stable condition. Written and verbal after care instructions given to patient and mother (who is a GENERAL LEDGER ACCOUNTANT by [employer]). Patient and family verbalized understanding and compliance of instructions. Stressed follow up with lumber piler operator and BURN specialist or return to ER for worsening s/s.
--- NOTE | 2022-04-10 18:59 | NUR ---
Patient said that she wants to (voluntarily) go to [facility] in [place], pending callback from psych rail maintenance worker Gabriela for acceptance from [facility].
--- NOTE | 2022-04-10 19:11 | NUR ---
pt awake alert denies pain. pt says she is depressed and wants to kill herself by taking pills but she does not have pills or a way to do this.
--- NOTE | 2022-04-10 19:15 | NUR ---
documents were faxed to [phone] as requested to [facility].
--- NOTE | 2022-04-10 19:31 | NUR ---
verified with December at [facility] at [phone] she states she received the fax and will send this to the household appliances service technician.
--- NOTE | 2022-04-10 21:54 | NUR ---
ARt called from [facility] says they need a test before they will accept her. I informed Dr. Durand and when I receive the results I will fax it to them.
[2022-04-10 23:24] LABS: BACTERIA,URINE FEW /HPF (NONE SEEN); SQUAMOUS EPITHELIAL CELL,UR FEW /HPF (NONE SEEN)
--- NOTE | 2022-04-11 00:19 | NUR ---
call to art at [facility] pt is accepted under the care of Dr. Sales number for report is [phone]
--- NOTE | 2022-04-11 00:27 | NUR ---
I advised to the pt that she is ready to go to [facility] and to sign the form for transfer and now the pt refuses to leave to [facility] says she wants to stay here. I notifed Andrew the charge nurse of this.
--- NOTE | 2022-04-11 01:39 | NUR ---
report given to Tino at [facility] pt will go to this facility as she now agrees.
--- NOTE | 2022-04-11 01:48 | NUR ---
call to [facility] spoke with fahad states eta is 90 mintues.
--- NOTE | 2022-04-11 02:37 | NUR ---
Gave SBAR report to [facility] ambulance unit 300.
--- NOTE | 2022-04-11 02:44 | NUR ---
TRANSFERED TO [facility] VIA [facility].
== END 2022-04-11 02:46 ==
LOC: ER 16:29
DX: R45.851 Suicidal ideations (principal); F31.9 Bipolar disorder, unspecified; Z91.14 Patient's other noncompliance with medication regimen; Z88.6 Allergy status to analgesic agent; Z88.5 Allergy status to narcotic agent; Z88.8 Allergy status to other drugs, medicaments and biological substances; Z20.822 Contact with and (suspected) exposure to COVID-19; E87.6 Hypokalemia; F19.10 Other psychoactive substance abuse, uncomplicated; F15.10 Other stimulant abuse, uncomplicated
CPT/HCPCS: 36415; 85025; 87086; G0480

== ENCOUNTER 2022-04-21 04:05 | Emergency (ER) | payer MEDICARE, OTHER ==
[~2022-04-21] VITALS: Ht 172.7 cm; Wt 61.2 kg
--- NOTE | 2022-04-21 04:19 | NUR ---
Dr Zazueta at bedside, MSE in progress
--- NOTE | 2022-04-21 04:19 | NUR ---
Pt provided urine sample, sent to lab.
[2022-04-21 04:30] LABS: *BILIRUBIN,URIN 1+ (NEGATIVE); *BLOOD, URINE NEGATIVE (NEGATIVE); *CLARITY,URINE CLEAR (CLEAR); *COLOR,URINE YELLOW (YELLOW); *KETONES,URINE TRACE (NEGATIVE); *UROBILINOGEN,URINE 0.2 E.U./dl (NORMAL); LEUKOCYTE ESTERASE ,URINE 1+ (NEGATIVE); NITRITE, URINE NEGATIVE (NEGATIVE); PH,URINE 5.5 (5.0-8.0); UGLUCOSE NEGATIVE (NEGATIVE)
[2022-04-21 04:42] LABS: *URINE HCG, QUAL NEGATIVE (NEGATIVE); BACTERIA,URINE FEW /HPF (NONE SEEN); RBC,URINE 0-3 /HPF (0-3); SQUAMOUS EPITHELIAL CELL,UR MODERATE /HPF (NONE SEEN)
[2022-04-21 04:53] LABS: *AMPHETAMINE, URINE NEGATIVE (NEGATIVE); *CANNABINOID, URINE NEGATIVE (NEGATIVE); *COCCAINE, URINE NEGATIVE (NEGATIVE); *OPIATE, URINE NEGATIVE (NEGATIVE); *PHENCYCLIDINE SCREEN,URINE NEGATIVE (NEGATIVE)
[2022-04-21 04:57] LABS: ALANINE AMINOTRANSFERASE 19 U/L (14-59); ALKALINE PHOSPHATASE 80 U/L (50-136); ASPARTATE AMINOTRANSFERASE 12 U/L (15-37); BILIRUBIN,DIRECT 0.1 mg/dL (0.0-0.2); BILIRUBIN,TOTAL 0.8 mg/dL (0.2-1.0); CARBON DIOXIDE 26 mmol/L (21-32); CHLORIDE 104 mmol/L (98-107); CREATININE 0.8 mg/dL (0.6-1.3); GLUCOSE 82 mg/dL (74-106); POTASSIUM 3.7 mmol/L (3.5-5.1); TOTAL PROTEIN, SERUM 7.8 g/dL (6.4-8.2); UREA NITROGEN, BLOOD 9 mg/dL (7-18)
[2022-04-21 05:00] LABS: ACETAMINOPHEN < 2.0 ug/mL (10-30)
--- NOTE | 2022-04-21 05:30 | NUR ---
no 1:1 sitter available
[2022-04-21 05:34] LABS: HEMATOCRIT 40.7 % (31.2-41.9); MEAN CORPUSCULAR HEMOGLOBIN 31.8 uug (24.7-32.8); MEAN CORPUSCULAR VOLUME 96.7 fL (75.5-95.3); PLATELET COUNT (AUTO) 250 K/uL (179-408)
[2022-04-21 05:37] LABS: ETHANOL < 3 MG/DL (0-0)
--- NOTE | 2022-04-21 06:39 | NUR ---
called [facility] raw products director for psych eval
--- NOTE | 2022-04-21 07:06 | NUR ---
commercial stripper Lorraine at bedside, psych eval in progress
--- NOTE | 2022-04-21 07:17 | NUR ---
change of shift report to Diandra EVANS
--- NOTE | 2022-04-21 07:20 | NUR ---
1st contact with patient: AOX4, calm and [email or web address] time. Per crisis child & adolescent psychiatrist Cayla, this patient will need to go to any psych hospital for suicidal thoughts. Patient will stay in our ER until an accepting psychiatric hospital takes this patient. Nursing supervisor color paste mixing Shalonda notified. legal officer Anoop notified.
[2022-04-21] MEDS ORDERED: DIVALPROEX 250 MG TABLET.DR PO ONE ×2 (07:45→07:52)
--- NOTE | 2022-04-21 08:00 | NUR ---
Patient is placed on 5150 psych HOLD by our psych crisis social security assessor Lorraine since 0747am today (04/21/2022) for danger to self. Nursing operations supervisor chemical cleaning Shalonda notified.
--- NOTE | 2022-04-21 11:39 | NUR ---
Patient wants to leave ER, our ER Doctor Carla notified.
--- NOTE | 2022-04-21 12:18 | NUR ---
Hot vegetarian lunch [email or web address]. Patient is calmer after seeing all her personal belongings being complete (hand-held mirror, a pair of slippers, pants, shirt, underwear and toiletries).
--- NOTE | 2022-04-21 15:32 | NUR ---
1517pm: [facility] plant maintenance worker Lorraine is here to reevaluate the patient.
--- NOTE | 2022-04-21 15:46 | NUR ---
All patient's belongings were handed to patient. Written resources for her psychiatric and drug addiction needs were provided by Lorraine herself.
--- NOTE | 2022-04-21 15:49 | NUR ---
9919 psych HOLD was "broken" by Psych other sales support worker Lorraine. Patient is for discharged to home in stable condition with brisk steady gait. Written and verbal after care instructions given to patient. Patient verbalized understanding and compliance of instructions. Stressed follow up with your primary doctor and psychiatric doctor or return to ER for worsening s/s.
== END 2022-04-21 15:49 | disposition home or self-care (01) ==
LOC: ER 04:21
DX: R45.851 Suicidal ideations (principal); F10.10 Alcohol abuse, uncomplicated; Y90.0 Blood alcohol level of less than 20 mg/100 ml; Z82.49 Family history of ischemic heart disease and other diseases of the circulatory system; F32.A Depression, unspecified
CPT/HCPCS: 36415; 84703; 85025; 87086; A4663; G0480; J3490

== ENCOUNTER 2022-05-26 18:03 | Emergency (ER) | payer MEDICARE, OTHER ==
[~2022-05-26] VITALS: Ht 172.7 cm; Wt 61.2 kg
--- NOTE | 2022-05-26 18:32 | NUR ---
PT IS IN ROOM #2B, DR VAN EVALUATED THE PT.
[2022-05-26 19:13] LABS: *BLOOD, URINE 1+ (NEGATIVE); *CLARITY,URINE CLOUDY (CLEAR); *COLOR,URINE YELLOW (YELLOW); *KETONES,URINE TRACE (NEGATIVE); LEUKOCYTE ESTERASE ,URINE 2+ (NEGATIVE); NITRITE, URINE NEGATIVE (NEGATIVE); PH,URINE 5.5 (5.0-8.0); UGLUCOSE NEGATIVE (NEGATIVE)
[2022-05-26 19:25] LABS: *BILIRUBIN,URIN 1+ (NEGATIVE)
[2022-05-26 19:27] LABS: *URINE HCG, QUAL NEGATIVE (NEGATIVE); BACTERIA,URINE FEW /HPF (NONE SEEN); SQUAMOUS EPITHELIAL CELL,UR MODERATE /HPF (NONE SEEN); WBC,URINE 50-80 /HPF (0-3)
[2022-05-26 19:30] LABS: *AMPHETAMINE, URINE POSITIVE (NEGATIVE); *CANNABINOID, URINE NEGATIVE (NEGATIVE); *COCCAINE, URINE NEGATIVE (NEGATIVE); *OPIATE, URINE NEGATIVE (NEGATIVE); *PHENCYCLIDINE SCREEN,URINE NEGATIVE (NEGATIVE)
[2022-05-26] MEDS ORDERED: LORAZEPAM 0.5 MG TABLET PO ONE (19:30)
[2022-05-26] MEDS ORDERED: DIVALPROEX 250 MG TABLET.DR PO ONE ×2 (19:30→19:32)
[2022-05-26 19:31] LABS: HEMATOCRIT 32.9 % (31.2-41.9); MEAN CORPUSCULAR HEMOGLOBIN 31.9 uug (24.7-32.8); MEAN CORPUSCULAR VOLUME 92.6 fL (75.5-95.3); PLATELET COUNT (AUTO) 302 K/uL (179-408)
[2022-05-26] MEDS ORDERED: LORAZEPAM 1 MG TABLET ONE ×2 (19:31→19:38)
[2022-05-26 19:38] LABS: ALANINE AMINOTRANSFERASE 13 U/L (14-59); ALKALINE PHOSPHATASE 134 U/L (50-136); ASPARTATE AMINOTRANSFERASE 13 U/L (15-37); BILIRUBIN,DIRECT 0.2 mg/dL (0.0-0.2); BILIRUBIN,TOTAL 0.7 mg/dL (0.2-1.0); CARBON DIOXIDE 24 mmol/L (21-32); CHLORIDE 106 mmol/L (98-107); CREATININE 0.7 mg/dL (0.6-1.3); GLUCOSE 108 mg/dL (74-106); POTASSIUM 3.6 mmol/L (3.5-5.1); TOTAL PROTEIN, SERUM 7.3 g/dL (6.4-8.2); UREA NITROGEN, BLOOD 15 mg/dL (7-18)
[2022-05-26 19:42] LABS: ACETAMINOPHEN < 2.0 ug/mL (10-30); ETHANOL < 3 MG/DL (0-0)
--- NOTE | 2022-05-26 21:40 | NUR ---
Faxed covid test result to [facility] ([phone]). Call verified that result was recieved, waiting for service crew supervisor and will call back. Inez
--- NOTE | 2022-05-26 22:13 | NUR ---
Received call back from Billy Cortes accepted to [facility] Kareem Briceno, Accepted by Dr. Sosa, number to report going to Unit [address].
--- NOTE | 2022-05-26 22:25 | NUR ---
Given report over the phone to NATHAN Cohen. Unit 1, Dr. Sosa. Sophia/Peggy
--- NOTE | 2022-05-26 22:34 | NUR ---
Called [facility] , S transportation requested. Spoke with Yolanda, 2-3 hrs steel pickler time ETA. Cortes/Peggy
--- NOTE | 2022-05-26 23:54 | NUR ---
Tranfers to outside Facility via ambulance from [facility]. Physician:Ian Location:[facility]
== END 2022-05-26 23:56 ==
LOC: ER 18:03
DX: F15.10 Other stimulant abuse, uncomplicated (principal); F10.20 Alcohol dependence, uncomplicated; Y90.0 Blood alcohol level of less than 20 mg/100 ml; R03.0 Elevated blood-pressure reading, without diagnosis of hypertension; R45.851 Suicidal ideations; Z88.6 Allergy status to analgesic agent; Z88.8 Allergy status to other drugs, medicaments and biological substances; Z20.822 Contact with and (suspected) exposure to COVID-19; F41.9 Anxiety disorder, unspecified; F32.A Depression, unspecified
CPT/HCPCS: 36415; 84703; 85025; 87086; A4663; G0480; J3490

== ENCOUNTER 2022-06-12 23:02 | Emergency (ER) | payer MEDICARE, OTHER ==
[~2022-06-12] VITALS: Ht 170.2 cm; Wt 61.2 kg
--- NOTE | 2022-06-13 01:20 | NUR ---
Patient walked to ER c/o "withdrawal" to alcohol. Patient stated everytime she feels the "withdrawal" she get depressed and get suicidal ideations. Patient denies other substance abuse.
--- NOTE | 2022-06-13 03:20 | NUR ---
Dr. Durand at bedside for MSE.
[2022-06-13 03:52] LABS: HEMATOCRIT 36.6 % (31.2-41.9); MEAN CORPUSCULAR HEMOGLOBIN 31.5 uug (24.7-32.8); MEAN CORPUSCULAR VOLUME 90.7 fL (75.5-95.3); PLATELET COUNT (AUTO) 266 K/uL (179-408)
[2022-06-13 04:00] LABS: CARBON DIOXIDE 31 mmol/L (21-32); CHLORIDE 106 mmol/L (98-107); CREATININE 0.7 mg/dL (0.6-1.3); GLUCOSE 98 mg/dL (74-106); POTASSIUM 3.7 mmol/L (3.5-5.1); UREA NITROGEN, BLOOD 11 mg/dL (7-18)
[2022-06-13 04:05] LABS: ETHANOL < 3 MG/DL (0-0)
[2022-06-13 04:06] LABS: ALANINE AMINOTRANSFERASE 19 U/L (14-59); ALKALINE PHOSPHATASE 109 U/L (50-136); ASPARTATE AMINOTRANSFERASE 13 U/L (15-37); BILIRUBIN,DIRECT 0.1 mg/dL (0.0-0.2); BILIRUBIN,TOTAL 0.7 mg/dL (0.2-1.0); TOTAL PROTEIN, SERUM 7.7 g/dL (6.4-8.2)
[2022-06-13 04:07] LABS: ACETAMINOPHEN < 2.0 ug/mL (10-30)
[2022-06-13 04:13] LABS: *BILIRUBIN,URIN NEGATIVE (NEGATIVE); *BLOOD, URINE NEGATIVE (NEGATIVE); *COLOR,URINE YELLOW (YELLOW); *KETONES,URINE 1+ (NEGATIVE); LEUKOCYTE ESTERASE ,URINE TRACE (NEGATIVE); NITRITE, URINE NEGATIVE (NEGATIVE); PH,URINE 5.5 (5.0-8.0); UGLUCOSE NEGATIVE (NEGATIVE)
[2022-06-13 04:15] LABS: *AMPHETAMINE, URINE NEGATIVE (NEGATIVE); *CANNABINOID, URINE NEGATIVE (NEGATIVE); *COCCAINE, URINE NEGATIVE (NEGATIVE); *OPIATE, URINE NEGATIVE (NEGATIVE); *PHENCYCLIDINE SCREEN,URINE NEGATIVE (NEGATIVE)
[2022-06-13 04:18] LABS: *CLARITY,URINE CLEAR (CLEAR)
[2022-06-13 06:15] LABS: BACTERIA,URINE FEW /HPF (NONE SEEN); RBC,URINE NONE SEEN /HPF (0-3); SQUAMOUS EPITHELIAL CELL,UR FEW /HPF (NONE SEEN)
[2022-06-13 06:29] VITALS: BP 141/87
--- NOTE | 2022-06-13 06:29 | NUR ---
Patient discharged to home in stable condition. Written and verbal after care instructions given. Patient verbalizes understanding of instructions. Stressed follow up or return to ER for worsening s/s. Pt ambulated out of the ER with steady gait. All belongings with pt.
== END 2022-06-13 06:29 | disposition home or self-care (01) ==
LOC: ER 23:02
DX: F25.9 Schizoaffective disorder, unspecified (principal); F10.20 Alcohol dependence, uncomplicated; F15.10 Other stimulant abuse, uncomplicated; Z88.6 Allergy status to analgesic agent; Z88.8 Allergy status to other drugs, medicaments and biological substances
CPT/HCPCS: 36415; 85025; G0480

== ENCOUNTER 2024-06-05 18:54 | Emergency (ER) | payer MEDICARE, OTHER ==
[~2024-06-05] VITALS: Ht 172.7 cm; Wt 70.3 kg
[2024-06-05 19:54] LABS: BASOPHILS # (AUTO) 0.1 K/UL (0.0-0.2); BASOPHILS % (AUTO) 1.2 % (0.0-2.0); EOSINOPHILS # (AUTO) 0.1 K/uL (0.0-0.7); EOSINOPHILS % (AUTO) 1.4 % (0.0-7.0); HEMATOCRIT 32.6 % (31.2-41.9); HEMOGLOBIN 11.2 g/dL (10.9-14.3); LYMPHOCYTES % (AUTO) 27.8 % (20.5-51.5); MEAN CORPUSCULAR HEMOGLOBIN 32.1 uug (24.7-32.8); MEAN CORPUSCULAR HGB CONC 35 g/dL (32.3-35.6); MONOCYTES # (AUTO) 0.7 K/uL (0.1-1.30); MONOCYTES % (AUTO) 9.6 % (0.0-11.0); NEUTROPHILS # (AUTO) 4.3 K/uL (1.8-8.9); RED CELL DISTRIBUTION WIDTH 12.6 % (12.3-17.7); WHITE BLOOD COUNT (AUTO) 7.2 K/uL (3.8-11.8)
[2024-06-05 20:03] LABS: ETHANOL < 3 MG/DL (0-10)
[2024-06-05 20:08] LABS: DIFFERENTIAL COMMENT 1
[2024-06-05 20:09] LABS: ALANINE AMINOTRANSFERASE 13 U/L (14-59); ALBUMIN 3.6 g/dL (3.4-5.0); ALKALINE PHOSPHATASE 69 U/L (50-136); ASPARTATE AMINOTRANSFERASE 21 U/L (15-37); BILIRUBIN,DIRECT 0.2 mg/dL (0.0-0.2); BILIRUBIN,TOTAL 0.7 mg/dL (0.2-1.0); CALCIUM 8.9 mg/dL (8.5-10.1); CARBON DIOXIDE 27 mmol/L (21-32); CHLORIDE 104 mmol/L (98-107); CREATININE 0.6 mg/dL (0.6-1.3); GLUCOSE 114 mg/dL (74-106); POTASSIUM 3.8 mmol/L (3.5-5.1); SODIUM SERUM 141 mmol/L (136-145); TOTAL PROTEIN, SERUM 6.7 g/dL (6.4-8.2); UREA NITROGEN, BLOOD 9 mg/dL (7-18)
[2024-06-05 20:10] LABS: ACETAMINOPHEN < 2.0 ug/mL (10-30)
[2024-06-05 20:11] LABS: THYROID STIMULATING HORMONE 1.519 mIU/mL (0.358-3.740)
[2024-06-05 20:18] LABS: *BILIRUBIN,URIN NEGATIVE (NEGATIVE); *BLOOD, URINE NEGATIVE (NEGATIVE); *CLARITY,URINE CLEAR (CLEAR); *COLOR,URINE YELLOW (YELLOW); *KETONES,URINE NEGATIVE (NEGATIVE); *PROTEIN,URINE NEGATIVE (NEGATIVE); LEUKOCYTE ESTERASE ,URINE NEGATIVE (NEGATIVE); NITRITE, URINE NEGATIVE (NEGATIVE); PH,URINE 5.5 (5.0-8.0); UGLUCOSE NEGATIVE (NEGATIVE)
[2024-06-05 20:31] LABS: BACTERIA,URINE NONE SEEN /HPF (NONE SEEN); RBC,URINE NONE SEEN /HPF (0-3); SQUAMOUS EPITHELIAL CELL,UR FEW /HPF (NONE SEEN); WBC,URINE 0-3 /HPF (0-3)
[2024-06-05 20:32] LABS: *AMPHETAMINE, URINE NEGATIVE (NEGATIVE); *BARBITURATE, URINE NEGATIVE (NEGATIVE); *BENZODIAZEPINE, URINE NEGATIVE (NEGATIVE); *CANNABINOID, URINE NEGATIVE (NEGATIVE); *COCCAINE, URINE NEGATIVE (NEGATIVE); *OPIATE, URINE NEGATIVE (NEGATIVE); *PHENCYCLIDINE SCREEN,URINE NEGATIVE (NEGATIVE); FENTANYL, URINE NEGATIVE (NEGATIVE)
[2024-06-05 20:52] LABS: PLATELET COUNT (AUTO) 134 K/uL (179-408)
[2024-06-05 21:45] VITALS: O2SAT 99
== END 2024-06-06 01:39 ==
LOC: ER 18:54
DX: F32.A Depression, unspecified (principal); F19.10 Other psychoactive substance abuse, uncomplicated; F17.210 Nicotine dependence, cigarettes, uncomplicated; Z20.822 Contact with and (suspected) exposure to COVID-19; Z98.890 Other specified postprocedural states; Z59.00 Homelessness unspecified
CPT/HCPCS: 36415; 84443; 85025; A4606; A4663; G0480

== ENCOUNTER 2024-10-06 21:41 | Emergency (ER) | payer MEDICARE, OTHER ==
[~2024-10-06] VITALS: Ht 172.7 cm; Wt 69.9 kg
[2024-10-06 22:44] LABS: *BILIRUBIN,URIN NEGATIVE (NEGATIVE); *CLARITY,URINE CLEAR (CLEAR); *COLOR,URINE YELLOW (YELLOW); *KETONES,URINE 1+ (NEGATIVE); *PROTEIN,URINE NEGATIVE (NEGATIVE); *UROBILINOGEN,URINE 0.2 E.U./dl (NORMAL); LEUKOCYTE ESTERASE ,URINE 1+ (NEGATIVE); NITRITE, URINE NEGATIVE (NEGATIVE); PH,URINE 6.5 (5.0-8.0); UGLUCOSE NEGATIVE (NEGATIVE)
[2024-10-06 22:45] LABS: BASOPHILS % (AUTO) 0.5 % (0.0-2.0); EOSINOPHILS % (AUTO) 0.5 % (0.0-7.0); HEMATOCRIT 38.7 % (31.2-41.9); HEMOGLOBIN 13.3 g/dL (10.9-14.3); LYMPHOCYTES # (AUTO) 1.7 K/uL (0.8-4.8); LYMPHOCYTES % (AUTO) 24.2 % (20.5-51.5); MEAN CORPUSCULAR HEMOGLOBIN 31.2 uug (24.7-32.8); MEAN CORPUSCULAR HGB CONC 34 g/dL (32.3-35.6); MONOCYTES # (AUTO) 0.6 K/uL (0.1-1.30); MONOCYTES % (AUTO) 9.3 % (0.0-11.0); NEUTROPHILS # (AUTO) 4.6 K/uL (1.8-8.9); NEUTROPHILS % (AUTO) 65.5 % (38.5-71.5); PLATELET COUNT (AUTO) 252 K/uL (179-408); RED BLOOD CELL COUNT(AUTO) 4.25 MIL/uL (3.63-4.92); RED CELL DISTRIBUTION WIDTH 13.1 % (12.3-17.7)
[2024-10-06 22:51] LABS: *BLOOD, URINE TRACE (NEGATIVE)
[2024-10-06 22:51] LABS: DIFFERENTIAL COMMENT 1
[2024-10-06 23:01] LABS: *AMPHETAMINE, URINE NEGATIVE (NEGATIVE); *BARBITURATE, URINE NEGATIVE (NEGATIVE); *BENZODIAZEPINE, URINE NEGATIVE (NEGATIVE); *CANNABINOID, URINE NEGATIVE (NEGATIVE); *COCCAINE, URINE NEGATIVE (NEGATIVE); *OPIATE, URINE NEGATIVE (NEGATIVE); *PHENCYCLIDINE SCREEN,URINE NEGATIVE (NEGATIVE)
[2024-10-06 23:05] LABS: ALANINE AMINOTRANSFERASE 19 U/L (14-59); ALBUMIN 3.9 g/dL (3.4-5.0); ALKALINE PHOSPHATASE 74 U/L (50-136); ASPARTATE AMINOTRANSFERASE 17 U/L (15-37); BILIRUBIN,DIRECT 0.3 mg/dL (0.0-0.2); BILIRUBIN,TOTAL 1.2 mg/dL (0.2-1.0); CALCIUM 9.3 mg/dL (8.5-10.1); CARBON DIOXIDE 28 mmol/L (21-32); CHLORIDE 105 mmol/L (98-107); CREATININE 0.6 mg/dL (0.6-1.3); GLUCOSE 93 mg/dL (74-106); POTASSIUM 3.8 mmol/L (3.5-5.1); SODIUM SERUM 140 mmol/L (136-145); TOTAL PROTEIN, SERUM 7.5 g/dL (6.4-8.2); UREA NITROGEN, BLOOD 12 mg/dL (7-18)
[2024-10-06 23:06] LABS: ACETAMINOPHEN < 10.0 ug/mL (10-30)
[2024-10-06 23:15] LABS: ETHANOL < 3 MG/DL (0-10)
[2024-10-06 23:18] LABS: FENTANYL, URINE NEGATIVE (NEGATIVE)
[2024-10-06 23:33] LABS: BACTERIA,URINE FEW /HPF (NONE SEEN); SQUAMOUS EPITHELIAL CELL,UR FEW /HPF (NONE SEEN); WBC,URINE 0-3 /HPF (0-3)
[2024-10-07 03:10] VITALS: BP 123/75; TEMP 98.6; O2SAT 99
== END 2024-10-07 03:05 ==
LOC: ER 21:41
DX: R45.851 Suicidal ideations (principal); F17.200 Nicotine dependence, unspecified, uncomplicated; F31.9 Bipolar disorder, unspecified; Z59.00 Homelessness unspecified; Z20.822 Contact with and (suspected) exposure to COVID-19
CPT/HCPCS: 36415; 85025; A4606; A4663; G0480

== ENCOUNTER 2024-11-11 20:17 | Inpatient (IN) | payer MEDICARE, OTHER ==
[~2024-11-11] VITALS: Ht 170.2 cm; Wt 72.6 kg
[2024-11-11 20:57] LABS: BASOPHILS % (AUTO) 0.6 % (0.0-2.0); EOSINOPHILS # (AUTO) 0.1 K/uL (0.0-0.7); EOSINOPHILS % (AUTO) 1.3 % (0.0-7.0); HEMATOCRIT 36.7 % (31.2-41.9); HEMOGLOBIN 12.6 g/dL (10.9-14.3); LYMPHOCYTES # (AUTO) 2.1 K/uL (0.8-4.8); LYMPHOCYTES % (AUTO) 28.4 % (20.5-51.5); MEAN CORPUSCULAR HEMOGLOBIN 31.1 uug (24.7-32.8); MEAN CORPUSCULAR HGB CONC 34 g/dL (32.3-35.6); MEAN CORPUSCULAR VOLUME 90.8 fL (75.5-95.3); MONOCYTES # (AUTO) 0.8 K/uL (0.1-1.30); MONOCYTES % (AUTO) 11.2 % (0.0-11.0); NEUTROPHILS # (AUTO) 4.4 K/uL (1.8-8.9); NEUTROPHILS % (AUTO) 58.5 % (38.5-71.5); PLATELET COUNT (AUTO) 291 K/uL (179-408); RED BLOOD CELL COUNT(AUTO) 4.05 MIL/uL (3.63-4.92); RED CELL DISTRIBUTION WIDTH 13.2 % (12.3-17.7); WHITE BLOOD COUNT (AUTO) 7.6 K/uL (3.8-11.8)
[2024-11-11 21:05] LABS: DIFFERENTIAL COMMENT 1
[2024-11-11 21:07] LABS: CALCIUM 9.1 mg/dL (8.5-10.1); CARBON DIOXIDE 27 mmol/L (21-32); CHLORIDE 108 mmol/L (98-107); CREATININE 0.9 mg/dL (0.6-1.3); GLUCOSE 95 mg/dL (74-106); POTASSIUM 3.7 mmol/L (3.5-5.1); SODIUM SERUM 145 mmol/L (136-145); UREA NITROGEN, BLOOD 22 mg/dL (7-18)
[2024-11-11 21:09] LABS: *BILIRUBIN,URIN 2+ (NEGATIVE); *CLARITY,URINE CLEAR (CLEAR); *KETONES,URINE 2+ (NEGATIVE); *PROTEIN,URINE TRACE (NEGATIVE); LEUKOCYTE ESTERASE ,URINE TRACE (NEGATIVE); NITRITE, URINE NEGATIVE (NEGATIVE); PH,URINE 5.5 (5.0-8.0); UGLUCOSE NEGATIVE (NEGATIVE)
[2024-11-11 21:10] LABS: *BLOOD, URINE TRACE (NEGATIVE)
[2024-11-11 21:11] LABS: *COLOR,URINE DARK YELLOW (YELLOW)
[2024-11-11 21:11] LABS: ETHANOL < 3 MG/DL (0-10)
[2024-11-11 21:12] LABS: ACETAMINOPHEN < 2.0 ug/mL (10-30); ALANINE AMINOTRANSFERASE 17 U/L (14-59); ALBUMIN 3.9 g/dL (3.4-5.0); ALKALINE PHOSPHATASE 73 U/L (50-136); ASPARTATE AMINOTRANSFERASE 23 U/L (15-37); BILIRUBIN,DIRECT 0.3 mg/dL (0.0-0.2); BILIRUBIN,TOTAL 1.2 mg/dL (0.2-1.0); TOTAL PROTEIN, SERUM 7.4 g/dL (6.4-8.2)
[2024-11-11 21:19] LABS: *AMPHETAMINE, URINE NEGATIVE (NEGATIVE); *BARBITURATE, URINE NEGATIVE (NEGATIVE); *BENZODIAZEPINE, URINE NEGATIVE (NEGATIVE); *CANNABINOID, URINE NEGATIVE (NEGATIVE); *COCCAINE, URINE NEGATIVE (NEGATIVE); *OPIATE, URINE NEGATIVE (NEGATIVE); *PHENCYCLIDINE SCREEN,URINE NEGATIVE (NEGATIVE); FENTANYL, URINE NEGATIVE (NEGATIVE)
[2024-11-11 21:20] LABS: THYROID STIMULATING HORMONE 2.358 mIU/mL (0.358-3.740)
[2024-11-11 21:28] LABS: BACTERIA,URINE FEW /HPF (NONE SEEN); RBC,URINE 0-3 /HPF (0-3); SQUAMOUS EPITHELIAL CELL,UR FEW /HPF (NONE SEEN)
[2024-11-11] MEDS ORDERED: LORAZEPAM 1 MG TABLET ONE (23:09)
[2024-11-11] MEDS: LORAZEPAM 0.5 MG TABLET PO ONE (23:11)
[2024-11-12] MEDS ORDERED: ACETAMINOPHEN 325 MG TABLET PO PRN (15:30)
[2024-11-12] MEDS ORDERED: MAGNESIUM HYDROXIDE 30 ML LIQUID UDC PO PRN (15:30)
[2024-11-12] MEDS ORDERED: MAG HYDROX/AL HYDROX/SIMETH 30 ML LIQUID UDC PO PRN (15:30)
[2024-11-12 15:49] VITALS: BP 100/56; TEMP 98.2; O2SAT 95
[2024-11-12] MEDS: BLOOD SUGAR DIAGNOSTIC 1 EACH STRIP VI ONE (18:26)
[2024-11-12 19:39] VITALS: BP 84/53; TEMP 97.9; O2SAT 97
[2024-11-12 22:16] VITALS: BP 109/66
[2024-11-13] MEDS: ZOLPIDEM 5 MG TABLET PO PRN (01:15)
[2024-11-13 07:43] LABS: ALBUMIN 3.1 g/dL (3.4-5.0); BILIRUBIN,DIRECT 0.2 mg/dL (0.0-0.2); BILIRUBIN,TOTAL 0.5 mg/dL (0.2-1.0); CALCIUM 8.2 mg/dL (8.5-10.1); CREATININE 0.6 mg/dL (0.6-1.3); POTASSIUM 4.1 mmol/L (3.5-5.1); TOTAL PROTEIN, SERUM 6.3 g/dL (6.4-8.2)
[2024-11-13 08:08] VITALS: TEMP 97.8; O2SAT 96
[2024-11-13 08:10] VITALS: BP 119/86; TEMP 97.8; O2SAT 96
[2024-11-13] MEDS: DIVALPROEX SPRINKLE 125 MG CAP.SPRINK PO SCH (13:42)
[2024-11-13 16:21] VITALS: BP 122/76; TEMP 98.1; O2SAT 97
[2024-11-13 19:48] VITALS: BP 98/68; TEMP 98.2; O2SAT 98
[2024-11-13] MEDS: OLANZAPINE 2.5 MG TABLET PO SCH (20:50)
[2024-11-14 07:44] VITALS: BP 112/65; TEMP 98.2; O2SAT 99
[2024-11-14] MEDS: ENSURE ENLIVE (VAN) 240 ML LIQUID PO SCH (18:14)
[2024-11-14 20:00] VITALS: BP 117/72; TEMP 98.1; O2SAT 98
[2024-11-15 07:35] VITALS: BP 107/65; TEMP 97.6; O2SAT 98
[2024-11-15 16:00] VITALS: BP 125/83; TEMP 97.2; O2SAT 98
[2024-11-15 20:09] VITALS: BP 120/66; TEMP 97.8; O2SAT 99
[2024-11-15] MEDS ORDERED: OLANZAPINE 2.5 MG TABLET PO SCH (21:00)
[2024-11-15] MEDS: OLANZAPINE 5 MG TABLET PO SCH (21:00)
[2024-11-16 07:32] VITALS: BP 122/64; TEMP 98; O2SAT 98
[2024-11-16 16:38] VITALS: BP 128/74; TEMP 98; O2SAT 98
[2024-11-16 20:00] VITALS: BP 121/77; TEMP 98.2; O2SAT 95
[2024-11-16] MEDS: risperiDONE 1 MG TABLET PO SCH (20:42)
[2024-11-17] MEDS: LORAZEPAM 1 MG TABLET PO PRN (00:07)
[2024-11-17 08:14] VITALS: BP 110/59; TEMP 98.5; O2SAT 95
[2024-11-17 16:25] VITALS: BP 143/107; TEMP 98.1; O2SAT 98
[2024-11-17 20:00] VITALS: BP 119/75; TEMP 98.1; O2SAT 95
[2024-11-18 07:53] VITALS: BP 110/57; TEMP 98; O2SAT 100
[2024-11-18 15:19] VITALS: BP 101/68; TEMP 98; O2SAT 100
[2024-11-18 20:00] VITALS: BP 98/58; TEMP 97.7; O2SAT 99
[2024-11-18] MEDS: ZOLPIDEM 5 MG TABLET PO PRN (23:28)
[2024-11-19 07:48] VITALS: BP 94/70; TEMP 98.2; O2SAT 100
== END 2024-11-19 12:10 | disposition home or self-care (01) | DRG 885 ==
LOC: ER 20:21 → GPS 11-12 13:39
PROVIDERS: ADMIT Psychiatry & Neurology Psychiatry; ATTEND Nurse Practitioner Family
DX: F31.64 Bipolar disorder, current episode mixed, severe, with psychotic features (principal); R45.851 Suicidal ideations; E44.1 Mild protein-calorie malnutrition; Z59.01 Sheltered homelessness; E88.09 Other disorders of plasma-protein metabolism, not elsewhere classified; F15.10 Other stimulant abuse, uncomplicated; F14.10 Cocaine abuse, uncomplicated; F10.10 Alcohol abuse, uncomplicated; Y90.0 Blood alcohol level of less than 20 mg/100 ml; Z68.25 Body mass index [BMI] 25.0-25.9, adult
CPT/HCPCS: 36415; 84443; 85025; 87086; A4606; A4663; G0480

== ENCOUNTER 2024-12-24 20:15 | Inpatient (IN) | payer MEDICARE, MEDICAID ==
[~2024-12-24] VITALS: Ht 172.7 cm; Wt 69.4 kg
[2024-12-24 21:02] LABS: BASOPHILS # (AUTO) 0.1 K/UL (0.0-0.2); EOSINOPHILS # (AUTO) 0.1 K/uL (0.0-0.7); EOSINOPHILS % (AUTO) 1.3 % (0.0-7.0); HEMATOCRIT 36.3 % (31.2-41.9); HEMOGLOBIN 12.6 g/dL (10.9-14.3); LYMPHOCYTES # (AUTO) 1.2 K/uL (0.8-4.8); LYMPHOCYTES % (AUTO) 22.8 % (20.5-51.5); MEAN CORPUSCULAR HGB CONC 35 g/dL (32.3-35.6); MEAN CORPUSCULAR VOLUME 89.1 fL (75.5-95.3); MONOCYTES # (AUTO) 0.5 K/uL (0.1-1.30); MONOCYTES % (AUTO) 10.1 % (0.0-11.0); NEUTROPHILS # (AUTO) 3.5 K/uL (1.8-8.9); NEUTROPHILS % (AUTO) 64.8 % (38.5-71.5); PLATELET COUNT (AUTO) 271 K/uL (179-408); RED BLOOD CELL COUNT(AUTO) 4.07 MIL/uL (3.63-4.92); RED CELL DISTRIBUTION WIDTH 13.1 % (12.3-17.7); WHITE BLOOD COUNT (AUTO) 5.4 K/uL (3.8-11.8)
[2024-12-24 21:09] LABS: CARBON DIOXIDE 31 mmol/L (21-32); CHLORIDE 105 mmol/L (98-107); CREATININE 0.7 mg/dL (0.6-1.3); DIFFERENTIAL COMMENT 1; GLUCOSE 94 mg/dL (74-106); POTASSIUM 3.7 mmol/L (3.5-5.1); SODIUM SERUM 144 mmol/L (136-145); UREA NITROGEN, BLOOD 11 mg/dL (7-18)
[2024-12-24 21:09] LABS: *BILIRUBIN,URIN NEGATIVE (NEGATIVE); *CLARITY,URINE CLEAR (CLEAR); *COLOR,URINE YELLOW (YELLOW); *KETONES,URINE NEGATIVE (NEGATIVE); *PROTEIN,URINE NEGATIVE (NEGATIVE); LEUKOCYTE ESTERASE ,URINE NEGATIVE (NEGATIVE); NITRITE, URINE NEGATIVE (NEGATIVE); UGLUCOSE NEGATIVE (NEGATIVE)
[2024-12-24 21:10] LABS: *BLOOD, URINE TRACE (NEGATIVE)
[2024-12-24 21:11] LABS: ETHANOL < 3 MG/DL (0-10)
[2024-12-24 21:15] LABS: ACETAMINOPHEN < 2.0 ug/mL (10-30); ALANINE AMINOTRANSFERASE 12 U/L (14-59); ALBUMIN 3.6 g/dL (3.4-5.0); ALKALINE PHOSPHATASE 81 U/L (50-136); ASPARTATE AMINOTRANSFERASE 21 U/L (15-37); BILIRUBIN,DIRECT 0.2 mg/dL (0.0-0.2); BILIRUBIN,TOTAL 0.6 mg/dL (0.2-1.0); TOTAL PROTEIN, SERUM 7.5 g/dL (6.4-8.2)
[2024-12-24 21:21] LABS: BACTERIA,URINE NONE SEEN /HPF (NONE SEEN); RBC,URINE 0-3 /HPF (0-3); SQUAMOUS EPITHELIAL CELL,UR FEW /HPF (NONE SEEN); WBC,URINE 0-3 /HPF (0-3)
[2024-12-24 21:25] LABS: THYROID STIMULATING HORMONE 1.207 mIU/mL (0.358-3.740)
[2024-12-24 21:28] LABS: *AMPHETAMINE, URINE NEGATIVE (NEGATIVE); *BARBITURATE, URINE NEGATIVE (NEGATIVE); *BENZODIAZEPINE, URINE NEGATIVE (NEGATIVE); *CANNABINOID, URINE NEGATIVE (NEGATIVE); *COCCAINE, URINE NEGATIVE (NEGATIVE); *OPIATE, URINE NEGATIVE (NEGATIVE); *PHENCYCLIDINE SCREEN,URINE NEGATIVE (NEGATIVE); FENTANYL, URINE NEGATIVE (NEGATIVE)
[2024-12-24] MEDS ORDERED: LORAZEPAM 1 MG TABLET PO PRN (23:15)
[2024-12-24] MEDS ORDERED: MAGNESIUM HYDROXIDE 30 ML LIQUID UDC PO PRN (23:15)
[2024-12-24] MEDS: BLOOD SUGAR DIAGNOSTIC 1 EACH STRIP VI ONE (23:27)
[2024-12-24] MEDS: TEMAZEPAM 7.5 MG CAPSULE PO PRN (23:36)
[2024-12-25 08:14] VITALS: BP 129/69; TEMP 98; O2SAT 98
[2024-12-25] MEDS ORDERED: DIVA250T47 PO (11:21)
[2024-12-25] MEDS ORDERED: VENL75CA62 PO (11:21)
[2024-12-25 16:07] VITALS: BP 125/72; TEMP 98; O2SAT 99
[2024-12-25] MEDS: DIVALPROEX 250 MG TABLET.DR PO SCH (17:03)
[2024-12-25 20:00] VITALS: BP 121/78; TEMP 98; O2SAT 99
[2024-12-25] MEDS: LORAZEPAM 1 MG TABLET PO PRN (21:06)
[2024-12-25] MEDS: TEMAZEPAM 7.5 MG CAPSULE PO PRN (22:18)
[2024-12-26] MEDS: ACETAMINOPHEN 325 MG TABLET PO PRN (06:04)
[2024-12-26 08:04] VITALS: BP 95/57; TEMP 98.6; O2SAT 100
[2024-12-26 16:19] VITALS: BP 120/81; TEMP 97.9; O2SAT 100
[2024-12-26] MEDS: ZOLPIDEM 5 MG TABLET PO PRN (22:11)
[2024-12-27 08:52] VITALS: BP 131/60; TEMP 98.5; O2SAT 98
[2024-12-27 16:15] VITALS: BP 111/72; TEMP 98.1; O2SAT 98
[2024-12-27 19:57] VITALS: BP 104/69; TEMP 98.8; O2SAT 96
[2024-12-27] MEDS: TEMAZEPAM 7.5 MG CAPSULE PO PRN (23:29)
[2024-12-28 08:38] VITALS: BP 108/74; TEMP 98.1; O2SAT 100
[2024-12-28] MEDS: DIVALPROEX 250 MG TABLET.DR PO SCH (12:25)
[2024-12-28 16:38] VITALS: BP 117/73; TEMP 97.6; O2SAT 99
[2024-12-28 20:01] VITALS: BP 107/62; TEMP 98.1; O2SAT 98
[2024-12-29] MEDS: BENZOCAINE/MENTH/CETYLPYRD LOZENGE MM PRN (00:12)
[2024-12-29 08:30] VITALS: BP 149/62; TEMP 98; O2SAT 98
[2024-12-29 16:48] VITALS: BP 110/65; TEMP 97.9; O2SAT 97
[2024-12-29 20:04] VITALS: BP 120/70; TEMP 98.1; O2SAT 96
[2024-12-30 09:01] VITALS: BP 111/88; TEMP 97.6; O2SAT 98
[2024-12-30 15:51] VITALS: BP 100/72; TEMP 98; O2SAT 98
[2024-12-30] MEDS: DIVALPROEX 500 MG TABLET.DR PO SCH (16:45)
[2024-12-31 07:50] VITALS: BP 114/67; TEMP 98.2; O2SAT 99
[2024-12-31 16:00] VITALS: BP 145/65; TEMP 97.2; O2SAT 97
[2024-12-31 20:00] VITALS: BP 118/75; TEMP 98.4; O2SAT 99
[2025-01-01 07:36] VITALS: BP 100/53; TEMP 97.6; O2SAT 97
[2025-01-01 16:43] VITALS: BP 104/50; TEMP 97.6; O2SAT 98
[2025-01-01 20:42] VITALS: BP 125/64; TEMP 97.8; O2SAT 98
[2025-01-02 07:42] VITALS: BP 112/51; TEMP 97.2; O2SAT 98
[2025-01-02 16:00] VITALS: BP 124/77; TEMP 98.6; O2SAT 98
[2025-01-02 20:00] VITALS: BP 105/66; TEMP 98.1; O2SAT 98
[2025-01-03 08:20] VITALS: BP 102/49; TEMP 97.9; O2SAT 100
[2025-01-03 16:30] VITALS: BP 109/79; TEMP 97.5; O2SAT 100
[2025-01-03 21:35] VITALS: BP 115/64; TEMP 97.4; O2SAT 96
[2025-01-04 08:10] VITALS: BP 113/72; TEMP 98.5; O2SAT 97
[2025-01-04 16:59] VITALS: BP 116/77; TEMP 98; O2SAT 98
[2025-01-04 20:04] VITALS: BP 124/76; TEMP 98.2; O2SAT 98
[2025-01-05] MEDS: MAG HYDROX/AL HYDROX/SIMETH 30 ML LIQUID UDC PO PRN (05:44)
[2025-01-05 07:13] LABS: EOSINOPHILS # (AUTO) 0.1 K/uL (0.0-0.7); EOSINOPHILS % (AUTO) 1.6 % (0.0-7.0); HEMOGLOBIN 12.9 g/dL (10.9-14.3); LYMPHOCYTES # (AUTO) 1.6 K/uL (0.8-4.8); MEAN CORPUSCULAR HEMOGLOBIN 31.5 uug (24.7-32.8); MEAN CORPUSCULAR HGB CONC 35 g/dL (32.3-35.6); MEAN CORPUSCULAR VOLUME 90.5 fL (75.5-95.3); MONOCYTES # (AUTO) 0.4 K/uL (0.1-1.30); MONOCYTES % (AUTO) 9.3 % (0.0-11.0); NEUTROPHILS % (AUTO) 49.1 % (38.5-71.5); PLATELET COUNT (AUTO) 294 K/uL (179-408); RED BLOOD CELL COUNT(AUTO) 4.09 MIL/uL (3.63-4.92); RED CELL DISTRIBUTION WIDTH 12.8 % (12.3-17.7); WHITE BLOOD COUNT (AUTO) 4.1 K/uL (3.8-11.8)
[2025-01-05 07:26] LABS: DIFFERENTIAL COMMENT 1
[2025-01-05 07:27] LABS: ALBUMIN 3.2 g/dL (3.4-5.0); BILIRUBIN,TOTAL 0.4 mg/dL (0.2-1.0); CALCIUM 8.5 mg/dL (8.5-10.1); CREATININE 0.7 mg/dL (0.6-1.3); POTASSIUM 4.1 mmol/L (3.5-5.1); TOTAL PROTEIN, SERUM 7.1 g/dL (6.4-8.2)
[2025-01-05 08:51] VITALS: BP 119/65; TEMP 98.1; O2SAT 96
[2025-01-05 16:40] VITALS: BP 119/84; TEMP 98; O2SAT 100
[2025-01-05 20:01] VITALS: BP 144/87; TEMP 98.2; O2SAT 97
[2025-01-06 08:17] VITALS: BP 114/67; TEMP 98; O2SAT 99
[2025-01-06 15:27] VITALS: BP 105/62; TEMP 98.2; O2SAT 98
[2025-01-06 20:00] VITALS: BP 119/68; TEMP 98; O2SAT 99
[2025-01-07 09:21] VITALS: BP 111/61; TEMP 98; O2SAT 99
[2025-01-07 15:02] VITALS: BP 92/65; TEMP 98; O2SAT 96
[2025-01-07 20:00] VITALS: BP 125/78; TEMP 98; O2SAT 98
[2025-01-08 07:52] VITALS: BP 129/75; TEMP 97.3; O2SAT 98
== END 2025-01-08 20:46 | disposition home or self-care (01) | DRG 885 ==
LOC: ER 20:19 → GPS 22:48
PROVIDERS: ADMIT Psychiatry & Neurology Psychosomatic Medicine
DX: F31.5 Bipolar disorder, current episode depressed, severe, with psychotic features (principal); R45.851 Suicidal ideations; Z59.01 Sheltered homelessness; Z91.51 Personal history of suicidal behavior; F15.10 Other stimulant abuse, uncomplicated; F14.10 Cocaine abuse, uncomplicated; F10.20 Alcohol dependence, uncomplicated; Y90.0 Blood alcohol level of less than 20 mg/100 ml
CPT/HCPCS: 36415; 80164; 84443; 85025; A4606; G0480; J3490

== ENCOUNTER 2025-03-04 22:45 | Inpatient (IN) | payer MEDICARE, OTHER ==
[~2025-03-04] VITALS: Ht 172.7 cm; Wt 70.3 kg
[2025-03-04 23:46] LABS: PLATELET COUNT (AUTO) 276 K/uL (179-408); RED BLOOD CELL COUNT(AUTO) 3.70 MIL/uL (3.63-4.92); RED CELL DISTRIBUTION WIDTH 14.6 % (12.3-17.7); WHITE BLOOD COUNT (AUTO) 9.6 K/uL (3.8-11.8)
[2025-03-04 23:58] LABS: ASPARTATE AMINOTRANSFERASE 55 U/L (15-37); CREATININE 2.0 mg/dL (0.6-1.3); SODIUM SERUM 141 mmol/L (136-145); TOTAL PROTEIN, SERUM 7.2 g/dL (6.4-8.2); UREA NITROGEN, BLOOD 29 mg/dL (7-18)
[2025-03-04 23:59] LABS: ETHANOL < 3 MG/DL (0-10)
[2025-03-05 00:06] LABS: *BILIRUBIN,URIN 2+ (NEGATIVE); *BLOOD, URINE 1+ (NEGATIVE); *CLARITY,URINE CLEAR (CLEAR); *COLOR,URINE YELLOW (YELLOW); *KETONES,URINE 1+ (NEGATIVE); *PROTEIN,URINE 2+ (NEGATIVE); *UROBILINOGEN,URINE 1.0 E.U./dl (NORMAL); LEUKOCYTE ESTERASE ,URINE 1+ (NEGATIVE); NITRITE, URINE POSITIVE (NEGATIVE); UGLUCOSE NEGATIVE (NEGATIVE)
[2025-03-05 00:07] LABS: *AMPHETAMINE, URINE POSITIVE (NEGATIVE); *BARBITURATE, URINE NEGATIVE (NEGATIVE); *BENZODIAZEPINE, URINE NEGATIVE (NEGATIVE); *CANNABINOID, URINE NEGATIVE (NEGATIVE); *COCCAINE, URINE NEGATIVE (NEGATIVE); *OPIATE, URINE NEGATIVE (NEGATIVE); *PHENCYCLIDINE SCREEN,URINE NEGATIVE (NEGATIVE); FENTANYL, URINE NEGATIVE (NEGATIVE)
[2025-03-05 00:18] LABS: SQUAMOUS EPITHELIAL CELL,UR FEW /HPF (NONE SEEN)
[2025-03-05] MEDS: NITROFURANTOIN/NITROFURAN MAC 100 MG CAPSULE PO ONE (01:00)
[2025-03-05] MEDS ORDERED: NITROFURANTOIN/NITROFURAN MAC 100 MG CAPSULE PO ONE (02:00)
[2025-03-05 02:18] VITALS: BP 133/72; TEMP 98.3; O2SAT 100
[2025-03-05] MEDS: BLOOD SUGAR DIAGNOSTIC 1 EACH STRIP VI ONE (02:29)
[2025-03-05] MEDS ORDERED: MAG HYDROX/AL HYDROX/SIMETH 30 ML LIQUID UDC PO PRN (02:30)
[2025-03-05] MEDS ORDERED: LORAZEPAM 1 MG TABLET PO PRN ×2 (02:30→06:00)
[2025-03-05] MEDS ORDERED: MAGNESIUM HYDROXIDE 30 ML LIQUID UDC PO PRN (02:30)
[2025-03-05] MEDS ORDERED: LORAZEPAM 0.5 MG TABLET PO PRN (02:30)
[2025-03-05] MEDS ORDERED: ZOLPIDEM 5 MG TABLET PO PRN ×2 (02:30)
[2025-03-05] MEDS ORDERED: ZOLP10TA2 PO (02:52)
[2025-03-05] MEDS ORDERED: DIVA250T4 PO (02:52)
[2025-03-05 07:54] VITALS: BP 90/53; TEMP 98.2; O2SAT 99
[2025-03-05 07:57] LABS: GLUCOSE FASTING 100.0 mg/dL (70-115)
[2025-03-05] MEDS: IV NS 1000 ML 1,000 ML IV ONE (12:52)
[2025-03-05 15:29] VITALS: BP 90/44; TEMP 98; O2SAT 99
[2025-03-05 19:59] VITALS: BP 198/112; TEMP 98.1; O2SAT 98
[2025-03-05] MEDS: LORAZEPAM 0.5 MG TABLET PO PRN (20:41)
[2025-03-05] MEDS: DIVALPROEX 250 MG TABLET.DR PO SCH (20:42)
[2025-03-05 23:00] VITALS: BP 100/60; TEMP 98.1; O2SAT 98
[2025-03-06 07:34] LABS: PLATELET COUNT (AUTO) 203 K/uL (179-408); RED BLOOD CELL COUNT(AUTO) 3.34 MIL/uL (3.63-4.92); RED CELL DISTRIBUTION WIDTH 14.0 % (12.3-17.7); WHITE BLOOD COUNT (AUTO) 6.7 K/uL (3.8-11.8)
[2025-03-06 08:00] LABS: ASPARTATE AMINOTRANSFERASE 28.0 U/L (15-37); CREATINE KINASE, TOTAL 323.0 U/L (26-192); CREATININE 0.7 mg/dL (0.6-1.3); SODIUM SERUM 145.0 mmol/L (136-145); TOTAL PROTEIN, SERUM 6.1 g/dL (6.4-8.2); UREA NITROGEN, BLOOD 11.0 mg/dL (7-18)
[2025-03-06 08:04] VITALS: BP 90/56; TEMP 98.2; O2SAT 98
[2025-03-06 15:32] VITALS: O2SAT 98
[2025-03-06 20:09] VITALS: BP 95/58; TEMP 98.8; O2SAT 97
[2025-03-06] MEDS: ACETAMINOPHEN 325 MG TABLET PO PRN (20:53)
[2025-03-07 07:48] LABS: ASPARTATE AMINOTRANSFERASE 19.0 U/L (15-37); CREATININE 0.7 mg/dL (0.6-1.3); SODIUM SERUM 145.0 mmol/L (136-145); TOTAL PROTEIN, SERUM 6.3 g/dL (6.4-8.2); UREA NITROGEN, BLOOD 8.0 mg/dL (7-18)
[2025-03-07 08:08] VITALS: BP 139/47; TEMP 98; O2SAT 98
[2025-03-07 16:28] VITALS: BP 102/56; TEMP 98; O2SAT 98
[2025-03-07 19:54] VITALS: BP 138/55; TEMP 97.7; O2SAT 100
[2025-03-07 20:34] LABS: *BILIRUBIN,URIN NEGATIVE (NEGATIVE); *BLOOD, URINE NEGATIVE (NEGATIVE); *CLARITY,URINE CLEAR (CLEAR); *COLOR,URINE LIGHT YELLOW (YELLOW); *KETONES,URINE NEGATIVE (NEGATIVE); *PROTEIN,URINE NEGATIVE (NEGATIVE); *UROBILINOGEN,URINE 1.0 E.U./dl (NORMAL); LEUKOCYTE ESTERASE ,URINE NEGATIVE (NEGATIVE); NITRITE, URINE NEGATIVE (NEGATIVE); UGLUCOSE NEGATIVE (NEGATIVE)
[2025-03-07 20:42] LABS: *CREATININE,URINE 24.0 mg/dL (30-125); *SODIUM RNDM,URINE 61 mmol/L (40-220); *URINE TOTAL PROTEIN RANDOM < 6.0 mg/dL (<150/24HR); SQUAMOUS EPITHELIAL CELL,UR FEW /HPF (NONE SEEN)
[2025-03-08 08:06] VITALS: BP 132/74; TEMP 97.7; O2SAT 100
[2025-03-08 08:07] LABS: PTH, INTACT 42 pg/mL (15-65)
[2025-03-08 16:15] VITALS: BP 126/76; TEMP 97.7; O2SAT 100
[2025-03-08] MEDS: DIVALPROEX 250 MG TABLET.DR PO ONE (18:09)
[2025-03-08 19:53] VITALS: BP 124/82; TEMP 98.4; O2SAT 96
[2025-03-08] MEDS: TEMAZEPAM 7.5 MG CAPSULE PO PRN (21:56)
[2025-03-09 08:12] VITALS: BP 106/72; TEMP 97.7; O2SAT 100
[2025-03-09] MEDS: DIVALPROEX 500 MG TABLET.DR PO SCH (09:05)
[2025-03-09 16:31] VITALS: BP 112/84; TEMP 97.7; O2SAT 100
[2025-03-09 19:41] VITALS: BP 136/83; TEMP 98.7; O2SAT 98
[2025-03-10 08:12] VITALS: BP 110/65; TEMP 98.3; O2SAT 98
[2025-03-10 16:00] VITALS: BP 105/73; TEMP 98.2; O2SAT 98
[2025-03-10 19:58] VITALS: BP 112/66; TEMP 98.3; O2SAT 98
[2025-03-11 05:08] LABS: A/G RATIO 1.0 (0.7-1.7); BETA GLOBULIN 0.9 g/dL (0.7-1.3); GLOBULIN, TOTAL 2.8 g/dL (2.2-3.9); M-SPIKE Not Observed g/dL (Not Observed); PROTEIN, TOTAL 5.5 g/dL (6.0-8.5)
[2025-03-11 08:07] VITALS: BP 134/89; TEMP 98.2; O2SAT 98
[2025-03-11] MEDS: PHENAZOPYRIDINE HCL 100 MG TABLET PO SCH (15:04)
[2025-03-11 16:20] VITALS: BP 99/60; TEMP 98; O2SAT 100
[2025-03-11 19:28] LABS: *BILIRUBIN,URIN NEGATIVE (NEGATIVE); *BLOOD, URINE NEGATIVE (NEGATIVE); *CLARITY,URINE CLEAR (CLEAR); *COLOR,URINE Orange (YELLOW); *KETONES,URINE NEGATIVE (NEGATIVE); *PROTEIN,URINE NEGATIVE (NEGATIVE); *UROBILINOGEN,URINE 1.0 E.U./dl (NORMAL); LEUKOCYTE ESTERASE ,URINE NEGATIVE (NEGATIVE); NITRITE, URINE POSITIVE (NEGATIVE); UGLUCOSE TRACE (NEGATIVE)
[2025-03-11 19:52] VITALS: BP 111/62; TEMP 98.1; O2SAT 98
[2025-03-11 20:27] LABS: SQUAMOUS EPITHELIAL CELL,UR FEW /HPF (NONE SEEN)
[2025-03-12] MEDS ORDERED: PHENAZOPYRIDINE HCL 100 MG TABLET ONE (03:15)
[2025-03-12 08:50] VITALS: BP 111/77; TEMP 98.2; O2SAT 100
[2025-03-12] MEDS: SULFAMETH/TRIMETH 800/160 MG TABLET PO SCH (10:40)
[2025-03-12 20:00] VITALS: BP 110/72; TEMP 98.4; O2SAT 98
[2025-03-13 09:04] VITALS: BP 139/86; TEMP 98; O2SAT 96
[2025-03-13 16:17] VITALS: BP 114/71; TEMP 98; O2SAT 98
[2025-03-13 20:00] VITALS: BP 135/80; TEMP 98; O2SAT 98
[2025-03-14 08:56] VITALS: BP 96/61; TEMP 98; O2SAT 98
[2025-03-14 16:31] VITALS: BP 118/61; TEMP 98; O2SAT 98
[2025-03-14 19:54] VITALS: BP 162/83; TEMP 97.9; O2SAT 98
[2025-03-15 08:12] VITALS: BP 109/66; TEMP 97.9; O2SAT 98
[2025-03-15 16:27] VITALS: BP 111/78; TEMP 97.9; O2SAT 98
[2025-03-15 19:57] VITALS: BP 108/75; TEMP 97.9; O2SAT 100
[2025-03-16 08:40] VITALS: BP 105/71; TEMP 98.3; O2SAT 100
== END 2025-03-16 12:15 | DRG 885 ==
LOC: ER 22:59 → GPS 03-05 01:00
PROVIDERS: ADMIT Psychiatry & Neurology Psychosomatic Medicine; ATTEND Nurse Practitioner Acute Care
PROC: 0H9LXZZ Drainage of Left Lower Leg Skin, External Approach (ICD-10-PCS; principal; 2025-03-09)
DX: F31.9 Bipolar disorder, unspecified (principal); R45.851 Suicidal ideations; Z59.02 Unsheltered homelessness; N39.0 Urinary tract infection, site not specified; E44.0 Moderate protein-calorie malnutrition; F14.10 Cocaine abuse, uncomplicated; F15.10 Other stimulant abuse, uncomplicated; Z91.51 Personal history of suicidal behavior; M89.8X9 Other specified disorders of bone, unspecified site; F25.9 Schizoaffective disorder, unspecified; S90.522A Blister (nonthermal), left ankle, initial encounter; X58.XXXA Exposure to other specified factors, initial encounter; Y92.410 Unspecified street and highway as the place of occurrence of the external cause; R60.0 Localized edema; E88.09 Other disorders of plasma-protein metabolism, not elsewhere classified; D64.9 Anemia, unspecified; Z79.899 Other long term (current) drug therapy
CPT/HCPCS: 36415; 80164; 83735; 83970; 84100; 84155; 84165; 84300; 84443; 85025; 87086; G0480; J3490; J7040

== ENCOUNTER 2025-03-24 00:03 | Inpatient (IN) | payer MEDICARE, MEDICAID ==
[~2025-03-24] VITALS: Ht 172.7 cm; Wt 69.9 kg
[2025-03-24 00:52] LABS: PLATELET COUNT (AUTO) 248 K/uL (179-408); RED BLOOD CELL COUNT(AUTO) 3.32 MIL/uL (3.63-4.92); RED CELL DISTRIBUTION WIDTH 14.2 % (12.3-17.7); WHITE BLOOD COUNT (AUTO) 5.4 K/uL (3.8-11.8)
[2025-03-24 00:52] LABS: *BILIRUBIN,URIN NEGATIVE (NEGATIVE); *BLOOD, URINE NEGATIVE (NEGATIVE); *CLARITY,URINE CLEAR (CLEAR); *COLOR,URINE YELLOW (YELLOW); *KETONES,URINE TRACE (NEGATIVE); *PROTEIN,URINE NEGATIVE (NEGATIVE); *UROBILINOGEN,URINE 0.2 E.U./dl (NORMAL); LEUKOCYTE ESTERASE ,URINE TRACE (NEGATIVE); NITRITE, URINE NEGATIVE (NEGATIVE); UGLUCOSE NEGATIVE (NEGATIVE)
[2025-03-24 00:55] LABS: SQUAMOUS EPITHELIAL CELL,UR FEW /HPF (NONE SEEN)
[2025-03-24 00:58] LABS: CREATININE 0.6 mg/dL (0.6-1.3); SODIUM SERUM 141 mmol/L (136-145); UREA NITROGEN, BLOOD 11 mg/dL (7-18)
[2025-03-24 01:00] LABS: *AMPHETAMINE, URINE NEGATIVE (NEGATIVE); *BARBITURATE, URINE NEGATIVE (NEGATIVE); *BENZODIAZEPINE, URINE NEGATIVE (NEGATIVE); *CANNABINOID, URINE NEGATIVE (NEGATIVE); *COCCAINE, URINE NEGATIVE (NEGATIVE); *OPIATE, URINE NEGATIVE (NEGATIVE); *PHENCYCLIDINE SCREEN,URINE NEGATIVE (NEGATIVE); FENTANYL, URINE NEGATIVE (NEGATIVE)
[2025-03-24 01:04] LABS: ASPARTATE AMINOTRANSFERASE 10 U/L (15-37); TOTAL PROTEIN, SERUM 6.8 g/dL (6.4-8.2)
[2025-03-24 01:06] LABS: ETHANOL < 3 MG/DL (0-10)
[2025-03-24 07:03] VITALS: BP 119/78
[2025-03-24 09:36] VITALS: BP 113/82; TEMP 97.8; O2SAT 100
[2025-03-24] MEDS ORDERED: MAGNESIUM HYDROXIDE 30 ML LIQUID UDC PO PRN ×2 (09:45→12:30)
[2025-03-24] MEDS ORDERED: ONDANSETRON 4 MG/2 ML VIAL IV PRN ×2 (09:45→13:00)
[2025-03-24] MEDS: CEphaleXIN 250 MG CAPSULE PO SCH (09:49)
[2025-03-24] MEDS ORDERED: DIVA250T PO (10:01)
[2025-03-24] MEDS ORDERED: ZOLP5TAB8 PO (10:06)
[2025-03-24 12:00] VITALS: BP 133/82; TEMP 97.7; O2SAT 100
[2025-03-24] MEDS ORDERED: LORAZEPAM 1 MG TABLET PO PRN (12:30)
[2025-03-24] MEDS ORDERED: ACETAMINOPHEN 325 MG TABLET PO PRN (12:30)
[2025-03-24] MEDS ORDERED: MAG HYDROX/AL HYDROX/SIMETH 30 ML LIQUID UDC PO PRN (12:30)
[2025-03-24] MEDS ORDERED: TEMAZEPAM 7.5 MG CAPSULE PO PRN (12:30)
[2025-03-24] MEDS: BLOOD SUGAR DIAGNOSTIC 1 EACH STRIP VI ONE (12:48)
[2025-03-24 16:00] VITALS: BP 108/72; TEMP 97.9; O2SAT 96
[2025-03-24] MEDS ORDERED: ONDANSETRON HCL 4 MG TABLET PO PRN (17:45)
[2025-03-25 09:42] VITALS: BP 114/84; TEMP 98; O2SAT 98
[2025-03-25] MEDS: DIVALPROEX 250 MG TABLET.DR PO SCH (12:30)
[2025-03-25 15:44] VITALS: BP 137/101; TEMP 98; O2SAT 100
[2025-03-25 20:00] VITALS: BP 100/65; TEMP 97.3; O2SAT 97
[2025-03-25] MEDS: DIVALPROEX 500 MG TABLET.DR PO SCH (20:31)
[2025-03-25] MEDS: TEMAZEPAM 7.5 MG CAPSULE PO PRN (22:32)
[2025-03-26 07:40] VITALS: BP 93/58; TEMP 97.8; O2SAT 98
[2025-03-26 07:53] LABS: PLATELET COUNT (AUTO) 279 K/uL (179-408); RED BLOOD CELL COUNT(AUTO) 3.94 MIL/uL (3.63-4.92); RED CELL DISTRIBUTION WIDTH 14.2 % (12.3-17.7); WHITE BLOOD COUNT (AUTO) 3.8 K/uL (3.8-11.8)
[2025-03-26 08:11] LABS: ASPARTATE AMINOTRANSFERASE 9.0 U/L (15-37); CREATININE 0.6 mg/dL (0.6-1.3); SODIUM SERUM 143.0 mmol/L (136-145); TOTAL PROTEIN, SERUM 6.5 g/dL (6.4-8.2); UREA NITROGEN, BLOOD 11.0 mg/dL (7-18)
[2025-03-26] MEDS: LORAZEPAM 0.5 MG TABLET PO PRN (13:46)
[2025-03-26 15:45] VITALS: BP 107/74; TEMP 98; O2SAT 99
[2025-03-26 20:00] VITALS: BP 89/59; TEMP 97.1; O2SAT 100
[2025-03-27 07:43] VITALS: BP 112/64; TEMP 98.4; O2SAT 99
[2025-03-27 15:31] VITALS: BP 98/61; TEMP 98.4; O2SAT 99
[2025-03-27 20:00] VITALS: BP 88/52; TEMP 98.1; O2SAT 95
[2025-03-28 08:10] VITALS: BP 109/49; TEMP 98; O2SAT 99
[2025-03-28 16:41] VITALS: BP 112/79; TEMP 98; O2SAT 99
[2025-03-28 20:00] VITALS: BP 125/78; TEMP 98.2; O2SAT 100
[2025-03-29] MEDS: ACETAMINOPHEN 325 MG TABLET PO PRN (03:08)
[2025-03-29 08:04] VITALS: BP 126/82; TEMP 98; O2SAT 99
[2025-03-29 16:35] VITALS: BP 112/70; TEMP 98; O2SAT 99
[2025-03-29 20:00] VITALS: BP 121/78; TEMP 98.1; O2SAT 100
[2025-03-30 08:59] VITALS: BP 104/72; TEMP 98; O2SAT 99
[2025-03-30 16:35] VITALS: BP 110/57; TEMP 98; O2SAT 99
[2025-03-30 19:56] VITALS: BP 103/75; TEMP 98.5; O2SAT 99
[2025-03-30 20:00] VITALS: BP 103/75; TEMP 98.5; O2SAT 99
[2025-03-31 07:33] VITALS: BP 129/77; TEMP 97.6; O2SAT 98
[2025-03-31 16:00] VITALS: BP 124/76; TEMP 97.6; O2SAT 98
[2025-03-31 20:00] VITALS: BP 128/80; TEMP 98.2; O2SAT 98
[2025-04-01 08:15] VITALS: BP 114/89; TEMP 98; O2SAT 98
[2025-04-01 15:47] VITALS: BP 107/72; TEMP 98; O2SAT 96
[2025-04-01 19:56] VITALS: BP 116/80; TEMP 98.1; O2SAT 100
[2025-04-02 08:00] VITALS: BP 120/86; TEMP 98.2; O2SAT 98
== END 2025-04-02 15:15 | disposition home or self-care (01) | DRG 885 ==
LOC: ER 00:10 → MEDSURG3 09:07 → GPSOV3 10:17 → GPS 03-25 06:51
PROVIDERS: ADMIT Psychiatry & Neurology Psychosomatic Medicine; ATTEND Nurse Practitioner Acute Care
DX: F39 Unspecified mood [affective] disorder (principal); R45.851 Suicidal ideations; Z59.02 Unsheltered homelessness; F29 Unspecified psychosis not due to a substance or known physiological condition; F15.10 Other stimulant abuse, uncomplicated; Z91.199 Patient's noncompliance with other medical treatment and regimen due to unspecified reason; F20.9 Schizophrenia, unspecified; R41.9 Unspecified symptoms and signs involving cognitive functions and awareness; Z87.891 Personal history of nicotine dependence
CPT/HCPCS: 36415; 80164; 83735; 84100; 85025; A4663; G0480; J3490

== ENCOUNTER 2025-04-15 04:41 | Emergency (ER) | payer MEDICARE, OTHER ==
[~2025-04-15] VITALS: Ht 172.7 cm; Wt 69.9 kg
[~2025-04-15 04:41] MED LIST changes: +DIVA250T PO; -DIVA250T4 PO; +ZOLP5TAB8 PO
[2025-04-15 05:18] LABS: PLATELET COUNT (AUTO) 212 K/uL (179-408); RED BLOOD CELL COUNT(AUTO) 3.74 MIL/uL (3.63-4.92); RED CELL DISTRIBUTION WIDTH 13.5 % (12.3-17.7); WHITE BLOOD COUNT (AUTO) 5.6 K/uL (3.8-11.8)
[2025-04-15 05:26] LABS: *BILIRUBIN,URIN NEGATIVE (NEGATIVE); *CLARITY,URINE CLEAR (CLEAR); *COLOR,URINE YELLOW (YELLOW); *KETONES,URINE NEGATIVE (NEGATIVE); *PROTEIN,URINE NEGATIVE (NEGATIVE); *UROBILINOGEN,URINE 4.0 E.U./dl (NORMAL); LEUKOCYTE ESTERASE ,URINE 1+ (NEGATIVE); NITRITE, URINE NEGATIVE (NEGATIVE); UGLUCOSE NEGATIVE (NEGATIVE)
[2025-04-15 05:28] LABS: *BLOOD, URINE TRACE (NEGATIVE)
[2025-04-15 05:35] LABS: *AMPHETAMINE, URINE NEGATIVE (NEGATIVE); *BARBITURATE, URINE NEGATIVE (NEGATIVE); *BENZODIAZEPINE, URINE NEGATIVE (NEGATIVE); *CANNABINOID, URINE NEGATIVE (NEGATIVE); *COCCAINE, URINE NEGATIVE (NEGATIVE); *OPIATE, URINE NEGATIVE (NEGATIVE); *PHENCYCLIDINE SCREEN,URINE NEGATIVE (NEGATIVE); FENTANYL, URINE NEGATIVE (NEGATIVE)
[2025-04-15 05:35] LABS: ASPARTATE AMINOTRANSFERASE 19 U/L (15-37); CREATININE 0.7 mg/dL (0.6-1.3); SODIUM SERUM 141 mmol/L (136-145); TOTAL PROTEIN, SERUM 7.3 g/dL (6.4-8.2); UREA NITROGEN, BLOOD 11 mg/dL (7-18)
[2025-04-15 05:47] LABS: ETHANOL < 3 MG/DL (0-10)
[2025-04-15 05:56] LABS: SQUAMOUS EPITHELIAL CELL,UR FEW /HPF (NONE SEEN)
[2025-04-15] MEDS ORDERED: NITROFURANTOIN/NITROFURAN MAC 100 MG CAPSULE PO ONE (06:15)
[2025-04-15] MEDS: NITROFURANTOIN/NITROFURAN MAC 100 MG CAPSULE PO ONE (06:19)
[2025-04-15 11:00] VITALS: BP 124/79
[2025-04-15 12:10] VITALS: BP 121/77; TEMP 98.1; O2SAT 98
== END 2025-04-15 12:08 | disposition home or self-care (01) ==
LOC: ER 04:45
DX: R45.851 Suicidal ideations (principal); F31.9 Bipolar disorder, unspecified; F17.200 Nicotine dependence, unspecified, uncomplicated; F14.91 Cocaine use, unspecified, in remission; Z59.00 Homelessness unspecified; Z88.7 Allergy status to serum and vaccine; Z20.822 Contact with and (suspected) exposure to COVID-19; Z79.899 Other long term (current) drug therapy
CPT/HCPCS: 36415; 80164; 84443; 85025; 87086; A4606; A4663; G0480

== ENCOUNTER 2025-04-15 22:10 | Emergency (ER) | payer MEDICARE, OTHER ==
[~2025-04-15] VITALS: Ht 162.6 cm; Wt 70.3 kg
[2025-04-15 23:51] LABS: PLATELET COUNT (AUTO) 243 K/uL (179-408); RED BLOOD CELL COUNT(AUTO) 3.83 MIL/uL (3.63-4.92); RED CELL DISTRIBUTION WIDTH 13.4 % (12.3-17.7); WHITE BLOOD COUNT (AUTO) 5.5 K/uL (3.8-11.8)
[2025-04-15 23:58] LABS: CREATININE 0.8 mg/dL (0.6-1.3); UREA NITROGEN, BLOOD 12 mg/dL (7-18)
[2025-04-16 00:04] LABS: ASPARTATE AMINOTRANSFERASE 23 U/L (15-37); TOTAL PROTEIN, SERUM 7.2 g/dL (6.4-8.2)
[2025-04-16 00:10] LABS: ETHANOL < 3 MG/DL (0-10)
[2025-04-16 00:37] LABS: SODIUM SERUM 144 mmol/L (136-145)
[2025-04-16 01:34] LABS: *BILIRUBIN,URIN NEGATIVE (NEGATIVE); *BLOOD, URINE NEGATIVE (NEGATIVE); *CLARITY,URINE SLIGHTLY CLOUDY (CLEAR); *COLOR,URINE YELLOW (YELLOW); *KETONES,URINE TRACE (NEGATIVE); *PROTEIN,URINE NEGATIVE (NEGATIVE); *UROBILINOGEN,URINE 1.0 E.U./dl (NORMAL); LEUKOCYTE ESTERASE ,URINE TRACE (NEGATIVE); NITRITE, URINE NEGATIVE (NEGATIVE); UGLUCOSE NEGATIVE (NEGATIVE)
[2025-04-16 01:44] LABS: *AMPHETAMINE, URINE NEGATIVE (NEGATIVE); *BARBITURATE, URINE NEGATIVE (NEGATIVE); *BENZODIAZEPINE, URINE NEGATIVE (NEGATIVE); *CANNABINOID, URINE NEGATIVE (NEGATIVE); *COCCAINE, URINE NEGATIVE (NEGATIVE); *OPIATE, URINE NEGATIVE (NEGATIVE); *PHENCYCLIDINE SCREEN,URINE NEGATIVE (NEGATIVE); FENTANYL, URINE NEGATIVE (NEGATIVE)
[2025-04-16 01:47] LABS: SQUAMOUS EPITHELIAL CELL,UR FEW /HPF (NONE SEEN)
[2025-04-16 03:25] VITALS: BP 98/67; O2SAT 98
== END 2025-04-16 03:43 | disposition short-term general hospital (02) ==
LOC: ER 22:10
DX: F32.A Depression, unspecified (principal); F14.91 Cocaine use, unspecified, in remission; F17.200 Nicotine dependence, unspecified, uncomplicated; F20.9 Schizophrenia, unspecified; Z59.00 Homelessness unspecified; Z88.7 Allergy status to serum and vaccine; Z79.899 Other long term (current) drug therapy; Z20.822 Contact with and (suspected) exposure to COVID-19
CPT/HCPCS: 36415; 85025; 87086; A4606; A4663; G0480

== ENCOUNTER 2025-04-19 00:33 | Emergency (ER) | payer MEDICARE, OTHER ==
[~2025-04-19] VITALS: Ht 172.7 cm; Wt 69.9 kg
[2025-04-19 01:34] LABS: PLATELET COUNT (AUTO) 221 K/uL (179-408); RED BLOOD CELL COUNT(AUTO) 3.68 MIL/uL (3.63-4.92); RED CELL DISTRIBUTION WIDTH 13.1 % (12.3-17.7); WHITE BLOOD COUNT (AUTO) 4.4 K/uL (3.8-11.8)
[2025-04-19 01:38] LABS: CREATININE 0.6 mg/dL (0.6-1.3); SODIUM SERUM 146 mmol/L (136-145); UREA NITROGEN, BLOOD 13 mg/dL (7-18)
[2025-04-19 01:43] LABS: ASPARTATE AMINOTRANSFERASE 10 U/L (15-37); TOTAL PROTEIN, SERUM 7.2 g/dL (6.4-8.2)
[2025-04-19 01:59] LABS: ETHANOL < 3 MG/DL (0-10)
[2025-04-19 03:16] LABS: *BILIRUBIN,URIN NEGATIVE (NEGATIVE); *BLOOD, URINE NEGATIVE (NEGATIVE); *CLARITY,URINE CLEAR (CLEAR); *COLOR,URINE YELLOW (YELLOW); *KETONES,URINE NEGATIVE (NEGATIVE); *PROTEIN,URINE NEGATIVE (NEGATIVE); *UROBILINOGEN,URINE 0.2 E.U./dl (NORMAL); LEUKOCYTE ESTERASE ,URINE NEGATIVE (NEGATIVE); NITRITE, URINE NEGATIVE (NEGATIVE); UGLUCOSE NEGATIVE (NEGATIVE)
[2025-04-19 03:24] LABS: *AMPHETAMINE, URINE NEGATIVE (NEGATIVE); *BARBITURATE, URINE NEGATIVE (NEGATIVE); *BENZODIAZEPINE, URINE NEGATIVE (NEGATIVE); *CANNABINOID, URINE NEGATIVE (NEGATIVE); *COCCAINE, URINE NEGATIVE (NEGATIVE); *OPIATE, URINE NEGATIVE (NEGATIVE); *PHENCYCLIDINE SCREEN,URINE NEGATIVE (NEGATIVE); FENTANYL, URINE NEGATIVE (NEGATIVE)
[2025-04-19 09:42] VITALS: BP 132/84
[2025-04-19 10:33] VITALS: BP 132/84; O2SAT 98
== END 2025-04-19 10:34 | disposition home or self-care (01) ==
LOC: ER 00:36
DX: R45.851 Suicidal ideations (principal); F19.10 Other psychoactive substance abuse, uncomplicated; Z59.00 Homelessness unspecified; Z88.7 Allergy status to serum and vaccine; Z20.822 Contact with and (suspected) exposure to COVID-19; Z79.899 Other long term (current) drug therapy
CPT/HCPCS: 36415; 85025; A4606; A4663; G0480

== ENCOUNTER 2025-05-28 22:50 | Emergency (ER) | payer MEDICARE, OTHER ==
[~2025-05-28] VITALS: Ht 172.7 cm; Wt 69.9 kg
[2025-05-28 22:54] VITALS: BP 130/79
[2025-05-28 23:51] LABS: *BILIRUBIN,URIN NEGATIVE (NEGATIVE); *COLOR,URINE YELLOW (YELLOW); *KETONES,URINE TRACE (NEGATIVE); *PROTEIN,URINE NEGATIVE (NEGATIVE); *UROBILINOGEN,URINE 1.0 E.U./dl (NORMAL); LEUKOCYTE ESTERASE ,URINE 1+ (NEGATIVE); NITRITE, URINE NEGATIVE (NEGATIVE); UGLUCOSE NEGATIVE (NEGATIVE)
[2025-05-28 23:51] LABS: PLATELET COUNT (AUTO) 209 K/uL (179-408); RED BLOOD CELL COUNT(AUTO) 3.48 MIL/uL (3.63-4.92); RED CELL DISTRIBUTION WIDTH 13.2 % (12.3-17.7); WHITE BLOOD COUNT (AUTO) 5.3 K/uL (3.8-11.8)
[2025-05-28 23:54] LABS: *BLOOD, URINE TRACE INTACT (NEGATIVE); *CLARITY,URINE HAZY (CLEAR)
[2025-05-29 00:04] LABS: ASPARTATE AMINOTRANSFERASE 14 U/L (15-37); CREATININE 0.6 mg/dL (0.6-1.3); SODIUM SERUM 143 mmol/L (136-145); TOTAL PROTEIN, SERUM 7.1 g/dL (6.4-8.2); UREA NITROGEN, BLOOD 11 mg/dL (7-18)
[2025-05-29 00:06] LABS: *AMPHETAMINE, URINE NEGATIVE (NEGATIVE); *BARBITURATE, URINE NEGATIVE (NEGATIVE); *BENZODIAZEPINE, URINE NEGATIVE (NEGATIVE); *CANNABINOID, URINE NEGATIVE (NEGATIVE); *COCCAINE, URINE NEGATIVE (NEGATIVE); *OPIATE, URINE NEGATIVE (NEGATIVE); *PHENCYCLIDINE SCREEN,URINE NEGATIVE (NEGATIVE); FENTANYL, URINE NEGATIVE (NEGATIVE)
[2025-05-29 00:08] LABS: ETHANOL < 3 MG/DL (0-10)
[2025-05-29 00:26] LABS: SQUAMOUS EPITHELIAL CELL,UR FEW /HPF (NONE SEEN)
[2025-05-29 12:19] VITALS: BP 126/79; TEMP 97.7; O2SAT 96
== END 2025-05-29 11:15 | disposition home or self-care (01) ==
LOC: ER 22:55
DX: R45.851 Suicidal ideations (principal); F31.9 Bipolar disorder, unspecified; F25.9 Schizoaffective disorder, unspecified; F15.10 Other stimulant abuse, uncomplicated; Z59.00 Homelessness unspecified; Z88.7 Allergy status to serum and vaccine; Z79.899 Other long term (current) drug therapy
CPT/HCPCS: 36415; 85025; 87086; A4606; A4663; G0480

== ENCOUNTER 2025-05-30 22:27 | Emergency (ER) | payer MEDICARE, OTHER ==
[~2025-05-30] VITALS: Ht 172.7 cm; Wt 69.9 kg
[2025-05-30 23:26] LABS: PLATELET COUNT (AUTO) 271 K/uL (179-408); RED BLOOD CELL COUNT(AUTO) 3.78 MIL/uL (3.63-4.92); RED CELL DISTRIBUTION WIDTH 13.5 % (12.3-17.7); WHITE BLOOD COUNT (AUTO) 6.7 K/uL (3.8-11.8)
[2025-05-30 23:30] LABS: *BILIRUBIN,URIN NEGATIVE (NEGATIVE); *BLOOD, URINE NEGATIVE (NEGATIVE); *CLARITY,URINE CLEAR (CLEAR); *COLOR,URINE YELLOW (YELLOW); *KETONES,URINE NEGATIVE (NEGATIVE); *PROTEIN,URINE NEGATIVE (NEGATIVE); *UROBILINOGEN,URINE 1.0 E.U./dl (NORMAL); LEUKOCYTE ESTERASE ,URINE TRACE (NEGATIVE); NITRITE, URINE NEGATIVE (NEGATIVE); UGLUCOSE NEGATIVE (NEGATIVE)
[2025-05-30 23:34] LABS: CREATININE 0.7 mg/dL (0.6-1.3); SODIUM SERUM 144.0 mmol/L (136-145)
[2025-05-30 23:40] LABS: ASPARTATE AMINOTRANSFERASE 14.0 U/L (15-37); TOTAL PROTEIN, SERUM 7.7 g/dL (6.4-8.2); UREA NITROGEN, BLOOD 6.0 mg/dL (7-18)
[2025-05-30 23:41] LABS: *AMPHETAMINE, URINE NEGATIVE (NEGATIVE); *BARBITURATE, URINE NEGATIVE (NEGATIVE); *BENZODIAZEPINE, URINE NEGATIVE (NEGATIVE); *CANNABINOID, URINE NEGATIVE (NEGATIVE); *COCCAINE, URINE NEGATIVE (NEGATIVE); *OPIATE, URINE NEGATIVE (NEGATIVE); *PHENCYCLIDINE SCREEN,URINE NEGATIVE (NEGATIVE); FENTANYL, URINE NEGATIVE (NEGATIVE)
[2025-05-30 23:43] LABS: ETHANOL < 3 MG/DL (0-10)
[2025-05-30 23:51] LABS: SQUAMOUS EPITHELIAL CELL,UR FEW /HPF (NONE SEEN)
[2025-05-30 23:52] LABS: *URINE HCG, QUAL NEGATIVE (NEGATIVE)
[2025-05-31 00:30] VITALS: BP 147/100
[2025-05-31] MEDS ORDERED: FOSFOMYCIN TROMETHAMINE 3 GM PACKET ONE (00:31)
[2025-05-31] MEDS: FOSFOMYCIN TROMETHAMINE 3 GM PACKET PO ONE (00:33)
[2025-05-31 00:59] VITALS: BP 147/100; O2SAT 97
== END 2025-05-31 01:05 | disposition home or self-care (01) ==
LOC: ER 22:31
DX: R45.851 Suicidal ideations (principal); F32.A Depression, unspecified; Z88.7 Allergy status to serum and vaccine; Z79.899 Other long term (current) drug therapy; Z20.822 Contact with and (suspected) exposure to COVID-19
CPT/HCPCS: 36415; 84443; 84703; 85025; 87086; A4606; A4663; G0480

== ENCOUNTER 2025-07-21 00:04 | Emergency (ER) | payer MEDICARE, OTHER ==
[~2025-07-21] VITALS: Ht 172.7 cm; Wt 69.9 kg
[~2025-07-21 00:04] MED LIST changes: -DIVA250T PO; +DIVA250T2 PO; +ZOLP5TAB18 PO; -ZOLP5TAB8 PO
[2025-07-21 00:32] LABS: PLATELET COUNT (AUTO) 287 K/uL (179-408); RED BLOOD CELL COUNT(AUTO) 4.14 MIL/uL (3.63-4.92); RED CELL DISTRIBUTION WIDTH 12.9 % (12.3-17.7); WHITE BLOOD COUNT (AUTO) 7.6 K/uL (3.8-11.8)
[2025-07-21 00:33] LABS: *BILIRUBIN,URIN 1+ (NEGATIVE); *KETONES,URINE NEGATIVE (NEGATIVE); *PROTEIN,URINE TRACE (NEGATIVE); *UROBILINOGEN,URINE 1.0 E.U./dl (NORMAL); LEUKOCYTE ESTERASE ,URINE TRACE (NEGATIVE); NITRITE, URINE NEGATIVE (NEGATIVE); UGLUCOSE NEGATIVE (NEGATIVE)
[2025-07-21 00:36] LABS: *BLOOD, URINE TRACE (NEGATIVE); *CLARITY,URINE HAZY (CLEAR)
[2025-07-21 00:37] LABS: *COLOR,URINE AMBER (YELLOW)
[2025-07-21 00:39] LABS: CREATININE 0.9 mg/dL (0.6-1.3); SODIUM SERUM 142 mmol/L (136-145); UREA NITROGEN, BLOOD 18 mg/dL (7-18)
[2025-07-21 00:45] LABS: ASPARTATE AMINOTRANSFERASE 19 U/L (15-37); TOTAL PROTEIN, SERUM 8.1 g/dL (6.4-8.2)
[2025-07-21 00:48] LABS: ETHANOL < 3 MG/DL (0-10)
[2025-07-21 00:49] LABS: *AMPHETAMINE, URINE NEGATIVE (NEGATIVE); *BARBITURATE, URINE NEGATIVE (NEGATIVE); *BENZODIAZEPINE, URINE NEGATIVE (NEGATIVE); *CANNABINOID, URINE NEGATIVE (NEGATIVE); *COCCAINE, URINE NEGATIVE (NEGATIVE); *OPIATE, URINE NEGATIVE (NEGATIVE); *PHENCYCLIDINE SCREEN,URINE NEGATIVE (NEGATIVE); FENTANYL, URINE NEGATIVE (NEGATIVE)
[2025-07-21 00:58] LABS: SQUAMOUS EPITHELIAL CELL,UR FEW /HPF (NONE SEEN)
[2025-07-21 04:30] VITALS: BP 129/88; O2SAT 99
== END 2025-07-21 07:57 | disposition left against medical advice (07) ==
LOC: ER 00:09
DX: R45.851 Suicidal ideations (principal); F32.A Depression, unspecified; F19.10 Other psychoactive substance abuse, uncomplicated; Z59.00 Homelessness unspecified; Z88.7 Allergy status to serum and vaccine; Z79.899 Other long term (current) drug therapy; Z20.822 Contact with and (suspected) exposure to COVID-19
CPT/HCPCS: 36415; 84443; 85025; 87086; 98960; A4606; A4663; G0480